=== PATIENT | male | born 1955 | race Caucasian/White ===

== ENCOUNTER 2017-11-05 09:06 | Emergency (ER) | payer OTHER ==
--- OUTSIDE RECORDS SUMMARY | 2017-11-05 09:09 | XMS REPORT | Clinical Summary ---
:1955 Author Organization [facility] Address [address] [place] [address] Phone Care Team Providers Name Role Phone Unavailable Primary Care Provider Unavailable Allergies No Known Allergies Current Medications Prescription Sig. Disp. Refills Start Date End Date Status carvedilol (COREG) Take 3.125 mg Active 3.125 MG tablet by mouth 2 (two) times daily with breakfast and dinner. furosemide (LASIX) 20 Take 20 mg by Active MG tablet mouth daily. spironolactone Take 25 mg by Active (ALDACTONE) 25 MG mouth daily. tablet pyridoxine, vitamin Take 50 mg by Active B6, (B-6) 50 MG mouth daily. tablet thiamine (VITAMIN Take 1 tablet 30 tablet 0 01/22/2017 Active B-1) 50 MG tablet (50 mg total) 8 by mouth daily. folic acid (FOLVITE) Take 1 tablet 30 tablet 0 01/22/2017 Active 1 MG tablet (1 mg total) 8 by mouth daily. amLODIPine (NORVASC) Take 10 mg by Active 10 MG tablet mouth daily. levETIRAcetam Take 750 mg by Active (KEPPRA) 750 MG mouth 2 (two) tablet times daily. traMADol (ULTRAM) 50 Take 50 mg by Active mg tablet mouth every 6 (six) hours as needed for Pain. lactulose (CHRONULAC) Take 30 mLs 1000 mL 0 08/29/2017 Active 20 gram/30 mL (20 g total) solution by mouth 2 (two) times daily. rifAXIMin 550 mg Tab Take 1 tablet 60 tablet 0 08/29/2017 Active (550 mg total) by mouth 2 (two) times daily. pantoprazole Take 1 tablet 30 tablet 2 08/29/2017 Active (PROTONIX) 40 MG (40 mg total) tablet by mouth daily. amLODIPine (NORVASC) Take 1 tablet 30 tablet 11 05/23/2016 10 MG tablet (10 mg total) 7 by mouth daily. folic acid (FOLVITE) Take 1 tablet 30 tablet 11 05/23/2016 1 MG tablet (1 mg total) 7 by mouth daily. levETIRAcetam Take 1 tablet 60 tablet 11 05/23/2016 (KEPPRA) 750 MG (750 mg total) 7 tablet by mouth 2 (two) times daily. metoprolol Take 1 tablet 60 tablet 11 05/23/2016 Discontinued (LOPRESSOR) 25 MG (25 mg total) 7 tablet by mouth 2 (two) times daily. chlordiazePOXIDE Take 10 mg by Discontinued (LIBRIUM) 10 MG mouth 3 7 capsule (three) times daily. omeprazole (PRILOSEC) Take 20 mg by Discontinued 20 MG capsule mouth daily. 8 traMADol (ULTRAM) 50 Take 1 tablet 30 tablet 0 01/22/2017 mg tablet (50 mg total) 7 by mouth every 6 (six) hours as needed for up to 10 days. Max Daily Amount: 200 mg rifAXIMin 550 mg Tab Take 1 tablet 60 tablet 0 01/22/2017 (550 mg total) 7 by mouth 2 (two) times daily for 30 days. pantoprazole Take 1 tablet 60 tablet 0 01/22/2017 (PROTONIX) 40 MG (40 mg total) 7 tablet by mouth 2 (two) times daily for 30 days. lactulose (CHRONULAC) Take 30 mLs 600 mL 0 01/22/2017 20 gram/30 mL (20 g total) 7 solution by mouth 2 (two) times daily for 10 days. lactulose (CHRONULAC) Take 30 mLs 1000 mL 0 08/29/2017 Discontinued 20 gram/30 mL (20 g total) 8 solution by mouth 2 (two) times daily. rifAXIMin 550 mg Tab Take 1 tablet 60 tablet 0 08/29/2017 Discontinued (550 mg total) 8 by mouth 2 (two) times daily. pantoprazole Take 1 tablet 30 tablet 2 08/29/2017 Discontinued (PROTONIX) 40 MG (40 mg total) 8 tablet by mouth daily. lactulose (CHRONULAC) Take 30 mLs 1000 mL 0 08/29/2017 Discontinued 20 gram/30 mL (20 g total) 8 solution by mouth 2 (two) times daily. rifAXIMin 550 mg Tab Take 1 tablet 60 tablet 0 08/29/2017 Discontinued (550 mg total) 8 by mouth 2 (two) times daily. pantoprazole Take 1 tablet 30 tablet 2 08/29/2017 Discontinued (PROTONIX) 40 MG (40 mg total) 8 tablet by mouth daily. Active Problems Problem Noted Date GI bleed 08/27/2017 Acute blood loss anemia 01/19/2017 Somnolence 01/19/2017 Encephalopathy acute 01/18/2017 UGIB (upper gastrointestinal bleed) 01/17/2017 Alcohol abuse 01/17/2017 Epilepsy (HCC) 01/17/2017 H/O: CVA (cerebrovascular accident) 01/17/2017 Encounters Date Type Specialty Care Team Description 08/29/2017 Anesthesia Event Gastroenterology Lillian Cannon CRNA 08/29/2017 Procedure Pass Gastroenterology 08/29/2017 Surgery Gastroenterology Chilango Whitman, UPPER ENDOSCOPY Kati Charlton MD 08/27/2017 Anesthesia Event Gastroenterology Samir Canas MD 08/27/2017 Procedure Pass Gastroenterology 08/26/2017 [facility], Encephalopathy acute - Encounter Christopher (Primary Dx);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, Juan Babb MD intractable, with status epilepticus (HCC);UGIB (upper gastrointestinal bleed);Gastrointestin al hemorrhage with hematemesis;H/O: CVA (cerebrovascular accident);Acute blood loss anemia 01/19/2017 Anesthesia Event Gastroenterology Shannon Corea MD 01/19/2017 Procedure Pass Gastroenterology 01/19/2017 Surgery Gastroenterology Casimiro Jaffe UPPER ENDOSCOPY MD Vj 01/18/2017 Anesthesia Event Gastroenterology Kendall Bonilla CRNA 01/18/2017 Procedure Pass Gastroenterology 01/17/2017 [facility] Internal Andrews Patten UGIB (upper - Encounter Medicine MD Ainsley gastrointestinal 01/23/2017 Maggie Wolff MD bleed);Alcohol Jerry Des abuse;Encephalopathy MD Wade acute;Partial Erica Joe idiopathic epilepsy MD David with seizures of localized onset, not intractable, with status epilepticus (HCC);H/O: CVA (cerebrovascular accident);Acute blood loss anemia;Somnolence 01/17/2017 Orders Only General Internal Medicine after 11/04/2016 Social History Tobacco Use Types Packs/Day Years Used Date Never Smoker Alcohol Use Drinks/Week oz/Week Comments Yes Unable to assess Sex Assigned at Date Recorded Not on file Last Filed Vital Signs Vital Sign Reading Time Taken Blood Pressure 100/63 08/30/2017 2:41 PM [employer] Pulse 72 08/30/2017 2:41 PM [employer] Temperature 36.7 C (98 F) 08/30/2017 2:41 PM [employer] Respiratory Rate 17 08/30/2017 2:41 PM [employer] Oxygen Saturation 99% 08/30/2017 2:41 PM [employer] Inhaled Oxygen Concentration - - Weight 53.7 kg (118 lb 4.8 oz) 08/26/2017 3:41 AM [employer] Height 167.6 cm (5' 6") 01/20/2017 7:00 AM CDT Body Mass Index 19.09 08/26/2017 3:41 AM [employer] Plan of Treatment Not on file Procedures Procedure Name Priority Date/Time Associated Diagnosis Comments UPPER ENDOSCOPY 08/29/2017 2:00 PM [employer] GI BLEED Special Needs EGD WITH ANES UPPER ENDOSCOPY 01/19/2017 8:32 AM CDT Upper G I Bleeding Case Notes Manager Immunology case at bedside ICU with anesthesia Special Needs Possible banding after 11/04/2016 Results EKG-SCANNED (09/02/2017 10:00 AM)RHYTHM STRIP - SCAN (09/02/2017 10:00 AM)Only the most recent of3 resultswithin the time period is included.REPORT OF PROCEDURE - ENDOSCOPY URL (08/29/2017 3:02 PM)Only the most recent of2 resultswithin the time period is included.Tissue Exam (08/29/2017 2:38 PM) Component Value Ref Range Case Report Surgical Pathology Report Case: [id number] Authorizing Provider:Kati Rodriguez Collected: 08/29/2017 1438 MD Zoltan Ordering Location: [address] Received: 09/01/2017 0738 Service Pathologist: John Cochran MD Specimens: A) - Gastric, RANDOM GASTRIC BX B) - Esophagus, BX ESOPHAGITIS DIAGNOSIS A. STOMACH, RANDOM BIOPSIES: - ANTRAL MUCOSA WITH REACTIVE GASTROPATHY AND MILD CHRONIC INACTIVE GASTRITIS - OXYNTIC MUCOSA WITH NO SIGNIFICANT DIAGNOSTIC ABNORMALITY - NEGATIVE FOR HELICOBACTER PYLORI ORGANISMS BY WARTHIN STARRY STAIN - NEGATIVE FOR INTESTINAL METAPLASIA, DYSPLASIA, MALIGNANCY B. ESOPHAGUS, BIOPSY: - CARDIO-OXYNTIC MUCOSA WITH CHRONIC INACTIVE GASTRITIS - NO SQUAMOUS MUCOSA IDENTIFIED - NEGATIVE FOR HELICOBACTER PYLORI ORGANISMS BY H&E EXAMINATION - NEGATIVE FOR INTESTINAL METAPLASIA, DYSPLASIA, MALIGNANCY Signing Pathologist Direct Phone Line: [phone] CPT Code(s) 10626W3 07015 CLINICAL HISTORY A. Random gastric biopsy; B. Esophagus biopsy SPECIMEN SOURCE The specimen is received in two containers of formalin both labeled with the patient's name and medical record number. Part A labeled 'random gastric biopsy" consists of two round fragments of humphries tissue measuring 0.1 and 0.2 cm, submitted A1. Part B labeled "esophagus biopsy" consists of three fragments of humphries tissue, ranging from less than 0.1 to 0.1 cm, submitted B1. CG/pl INTRAOPERATIVE CONSULTATION GI bleed. Esophagitis. MICROSCOPIC DESCRIPTION Performed. Specimen Performing Laboratory Tissue - Gastric; Tissue - Esophagus [address] [address] POC-Glucose meter (08/29/2017 2:37 PM) Component Value Ref Range POC-Glucose Meter 95Comment: TESTED AT [address] 70 - 110 mg/dL [address] Specimen Performing Laboratory Blood [address] [address] CBC with platelet count + automated diff (08/29/2017 5:29 AM)Only the most recent of5 resultswithin the time period is included. Component Value Ref Range WBC 5.5 3.5 - 10.5 K/L RBC 3.03 (L) 4.63 - 6.08 M/L Hemoglobin 8.6 (L) 13.7 - 17.5 GM/DL Hematocrit 26.0 (L) 40.1 - 51.0 % MCV 85.8 79.0 - 92.2 fL MCH 28.4 25.7 - 32.2 pg MCHC 33.1 32.3 - 36.5 GM/DL RDW 15.9 (H) 11.6 - 14.4 % Platelets 205 150 - 450 K/CU MM MPV 11.0 9.4 - 12.4 fL nRBC 0 0 - 0 /100 WBC % Neutros 79 % % Lymphs 13 % % Monos 6 % % Eos 2 % % Baso 0 % # Neutros 4.36 1.78 - 5.38 K/L # Lymphs 0.73 (L) 1.32 - 3.57 K/L # Monos 0.32 0.30 - 0.82 K/L # Eos 0.09 0.04 - 0.54 K/L # Baso 0.01 0.01 - 0.08 K/L Immature Granulocytes-Relative 0 0 - 1 % Specimen Performing Laboratory Blood - Arm, [address] [address] CBC with platelet count + automated diff (08/29/2017 5:29 AM)Only the most recent of5 resultswithin the time period is included. Specimen Performing Laboratory Blood Narrative The following orders were created for panel order CBC with platelet count + automated diff. Procedure Abnormality Status --------- ------ CBC with platelet count ...[[id number]]AbnormalFinal result Please view results for these tests on the individual orders. Hemoglobin and hematocrit (08/28/2017 11:33 AM)Only the most recent of9 resultswithin the time period is included. Component Value Ref Range Hemoglobin 9.3 (L) 13.7 - 17.5 GM/DL Hematocrit 27.9 (L) 40.1 - 51.0 % Specimen Performing Laboratory Blood - Arm, [address] [address] Urinalysis w/ Microscopic (08/27/2017 8:30 AM)Only the most recent of2 resultswithin the time period is included. Component Value Ref Range Color, UA Yellow Clarity, UA Clear Specific [place], UA 1.012 1.001 - 1.035 pH, UA 6.0 5.0 - 8.0 Protein, UA Negative Negative Glucose, UA Negative Negative Ketones, UA Negative Negative Bilirubin, UA Negative Negative Blood, UA Negative Negative Nitrite, UA Negative Negative Leukocytes, UA Negative Negative Urobilinogen, UA 0.2 0.2 - 1.0 mg/dL RBC, UA <1 /HPF WBC, UA <1 /HPF Squam Epithel, UA <1 /HPF Specimen Source Urine, Voided Specimen Performing Laboratory Urine - Urine, Voided [address] [address] Prothrombin time/INR (08/27/2017 4:27 AM)Only the most recent of4 resultswithin the time period is included. Component Value Ref Range Protime 15.4 (H) 11.7 - 14.7 seconds INR 1.2 <=5.9 Specimen Performing Laboratory Blood - Arm, [address] [address] Narrative RECOMMENDED COUMADIN/WARFARIN INR THERAPY RANGES STANDARD DOSE: 2.0 - 3.0 Includes: PROPHYLAXIS for venous thrombosis, systemic embolization; TREATMENT for venous thrombosis and/or pulmonary embolus. HIGH RISK: Target INR is 2.5-3.5 for patients with mechanical heart valves. Basic Metabolic Panel (08/27/2017 4:27 AM)Only the most recent of5 resultswithin the time period is included. Component Value Ref Range Sodium 135 (L) 136 - 145 meq/L Potassium 3.6 3.5 - 5.1 meq/L Chloride 106 98 - 107 meq/L CO2 22 22 - 29 meq/L BUN 19 7 - 21 mg/dL Creatinine 0.89 0.57 - 1.25 mg/dL Glucose 84 70 - 105 mg/dL Calcium 8.9 8.4 - 10.2 mg/dL EGFR 86Comment: ESTIMATED GFR IS NOT ACCURATE mL/min/1.73 sq m CREATININE CLEARANCE IN PREDICTING GLOMERULAR FILTRATION RATE. ESTIMATED GFR IS NOT APPLICABLE FOR DIALYSIS PATIENTS. Specimen Performing Laboratory Blood - Arm, [address] [address] Lactic acid, venous, whole blood (08/26/2017 5:37 AM)Only the most recent of2 resultswithin the time period is included. Component Value Ref Range Lactate, Venous 0.9Comment: Specimen slightly hemolyzed 0.5 - 2.2 mmol/L Specimen Performing Laboratory Blood - Arm, [address] [address] Narrative Effective 11/22/2015: Units/Reference Range Change New: 0.5-2.2 mmol/LPrevious: 5-20 mg/dL Ammonia (08/26/2017 5:37 AM)Only the most recent of2 resultswithin the time period is included. Component Value Ref Range Ammonia 82 (H)Comment: Specimen slightly hemolyzed 18 - 72 mol/L Specimen Performing Laboratory Blood - Arm, [address] [address] Hepatic function panel (08/26/2017 5:37 AM)Only the most recent of4 resultswithin the time period is included. Component Value Ref Range Protein, Total 6.7Comment: Specimen slightly hemolyzed 6.0 - 8.3 gm/dL Albumin 3.3 (L)Comment: Specimen slightly hemolyzed 3.5 - 5.0 g/dL Total Bilirubin 0.4Comment: Specimen slightly hemolyzed 0.2 - 1.2 mg/dL Bilirubin, Direct 0.2Comment: Specimen slightly hemolyzed 0.1 - 0.5 mg/dL Alkaline Phosphatase 50 40 - 150 U/L AST 25Comment: Specimen slightly hemolyzed 5 - 34 U/L ALT 19Comment: Specimen slightly hemolyzed 6 - 55 U/L Specimen Performing Laboratory Blood - Arm, [address] [address] EEG AWAKE AND DROWSY (01/20/2017 9:24 AM) Specimen Performing Laboratory GE RIS Narrative DATE OF TEST: 01-20-2017 DATE OF REPORT: 01-20-2017 ICD-10: R56.9 CPT Code: 59545 HISTORY: Patient w/ history of HTN, Hep C cirrhosis, alcoholism, CVA with residual left sided weakness who presented with AMS and unresponsive to sternal rub. CT Head showed enlargement of ventricles MEDICATIONS: Rocephin, Folvite, Chronulac, Keppra, Protonix, Rifaximin, Thiamine, Tramadol TECHNICAL SUMMARY: This is a digital video EEG recorded with 32 input channels reviewed with bipolar and referential montages using the modified [employer] system nomenclature. DESCRIPTION OF RECORD: During the maximally alert state, no definite posterior dominant rhythm was seen, although 7-8 Hz activity was seen in the left posterior head region which did not react to eye opening and closure. More anteriorly, low voltage frontocentral beta predominated. There was an excessive amount of admixed theta over the left hemisphere with superimposed faster frequencies. Focal 1-2 Hz delta slowing was seen over the right hemisphere with a relative decrease in the amount of faster frequencies seen. Frequent sharp waves were seen over the right parieto-occipital region, with an initial negativity at O2 with quick propagation to P4/P8. These were commonly seen in semiperiodic 1-2 Hz runs lasting up to 6 seconds without evolution. Drowsiness was characterized by alpha attenuation, increased frontocentral theta and decreased eye blinks but no stage 2 sleep structures were seen. HV: Hyperventilation was not performed. PHOTIC STIMULATION: Flash stimulation was performed from 1-33 Hz. Photic driving was not seen and no photoparoxysmal response was seen. IMPRESSION: Abnormal Awake and Drowsy EEG Sharp waves, regional right parieto-occipital Continuous slow, lateralized right hemisphere Continuous slow, generalized CLINICAL CORRELATION: This is an abnormal EEG suggestive of a mild encephalopathy with superimposed focal dysfunction over the right hemisphere. There is also evidence of right parieto-occipital epileptogenic potential. No electrographic seizures were seen. Yefri Carrillo MD, MS Neurophysiology/Epilepsy Attending Procedure Note Interface, External Ris In - 01/20/2017 10:31 AM CDT DATE OF TEST: 01-20-2017 DATE OF REPORT: 01-20-2017 ICD-10: R56.9 CPT Code: 19945 HISTORY: Patient w/ history of HTN, Hep C cirrhosis, alcoholism, CVA with residual left sided weakness who presented with AMS and unresponsive to sternal rub. CT Head showed enlargement of ventricles MEDICATIONS: Rocephin, Folvite, Chronulac, Keppra, Protonix, Rifaximin, Thiamine, Tramadol TECHNICAL SUMMARY: This is a digital video EEG recorded with 32 input channels reviewed with bipolar and referential montages using the modified [employer] system nomenclature. DESCRIPTION OF RECORD: During the maximally alert state, no definite posterior dominant rhythm was seen, although 7-8 Hz activity was seen in the left posterior head region which did not react to eye opening and closure. More anteriorly, low voltage frontocentral beta predominated. There was an excessive amount of admixed theta over the left hemisphere with superimposed faster frequencies. Focal 1-2 Hz delta slowing was seen over the right hemisphere with a relative decrease in the amount of faster frequencies seen. Frequent sharp waves were seen over the right parieto-occipital region, with an initial negativity at O2 with quick propagation to P4/P8. These were commonly seen in semiperiodic 1-2 Hz runs lasting up to 6 seconds without evolution. Drowsiness was characterized by alpha attenuation, increased frontocentral theta and decreased eye blinks but no stage 2 sleep structures were seen. HV: Hyperventilation was not performed. PHOTIC STIMULATION: Flash stimulation was performed from 1-33 Hz. Photic driving was not seen and no photoparoxysmal response was seen. IMPRESSION: Abnormal Awake and Drowsy EEG Sharp waves, regional right parieto-occipital Continuous slow, lateralized right hemisphere Continuous slow, generalized CLINICAL CORRELATION: This is an abnormal EEG suggestive of a mild encephalopathy with superimposed focal dysfunction over the right hemisphere. There is also evidence of right parieto-occipital epileptogenic potential. No electrographic seizures were seen. Yefri Carrillo MD, MS Neurophysiology/Epilepsy Attending Magnesium (01/20/2017 4:24 AM)Only the most recent of4 resultswithin the time period is included. Component Value Ref Range Magnesium 1.8Comment: Specimen slightly hemolyzed 1.6 - 2.6 mg/dL Specimen Performing Laboratory Blood - Arm, [place] [address] US abdomen complete (01/19/2017 12:50 AM) Specimen Performing Laboratory GE RIS Narrative FINAL REPORT INDICATION: history of cirrohsis COMPARISON: None. TECHNIQUE:Real-time transabdominal jeter scale and color Doppler ultrasound of the abdomen. FINDINGS: Liver: Size: 16.0cm. Echogenicity: Normal. Masses/lesions: None. Surface Nodularity: None. Intrahepatic bile ducts: Normal. Common bile duct: 0.7 cm. MPV: 1.3cm. Gallbladder: Stones: None. Sludge: None. Wall thickness: 0.3 cm. The gallbladder lumen is nondistended. Pericholecystic fluid: None. Sonographic Gomez's sign: No sonographic Gomez's sign. Pancreas: Head and uncinate process: Not well-seen. Body and tail: Not well-seen. Spleen: Size: 9.3cm. Echogenicity: Unremarkable. Right kidney: Absent. Left kidney: Size: 10.3 x 6.7 x 5.7 cm. Parenchyma: Normal echogenicity. No cysts. No stones. Hydronephrosis: None. Ascites: None. Regional Vasculature: The visible abdominal aorta, IVC and hepatic veins are patent. Additional findings: None. IMPRESSION: Mild hepatomegaly. No focal lesions. No distinct surface nodularity. Signed: JR Jc Robert MD Report Verified Date/Time:01/19/2017 02:43:10 Reading Location: [address] Transitional Reading Room Procedure Note Interface, External Ris In - 01/19/2017 2:45 AM CDT FINAL REPORT INDICATION: history of cirrohsis COMPARISON: None. TECHNIQUE: Real-time transabdominal jeter scale and color Doppler ultrasound of the abdomen. FINDINGS: Liver: Size: 16.0cm. Echogenicity: Normal. Masses/lesions: None. Surface Nodularity: None. Intrahepatic bile ducts: Normal. Common bile duct: 0.7 cm. MPV: 1.3cm. Gallbladder: Stones: None. Sludge: None. Wall thickness: 0.3 cm. The gallbladder lumen is nondistended. Pericholecystic fluid: None. Sonographic Gomez's sign: No sonographic Gomez's sign. Pancreas: Head and uncinate process: Not well-seen. Body and tail: Not well-seen. Spleen: Size: 9.3cm. Echogenicity: Unremarkable. Right kidney: Absent. Left kidney: Size: 10.3 x 6.7 x 5.7 cm. Parenchyma: Normal echogenicity. No cysts. No stones. Hydronephrosis: None. Ascites: None. Regional Vasculature: The visible abdominal aorta, IVC and hepatic veins are patent. Additional findings: None. IMPRESSION: Mild hepatomegaly. No focal lesions. No distinct surface nodularity. Signed: JR Jc Robert MD Report Verified Date/Time: 01/19/2017 02:43:10 Reading Location: [facility] C013T Transitional Reading Room Rapid drug screen, urine (01/18/2017 4:18 PM) Component Value Ref Range Barbiturate Screen Negative Negative Benzodiazepine Screen Positive (A) Negative Cocaine (Metab.) Screen Negative Negative Methadone Screen Negative Negative Opiate Screen Negative Negative Cannabinoid Screen Negative Negative Amph/Methamph Screen Negative Negative Phencyclidine Screen Negative Negative Oxycodone Screen Negative Negative Specimen Performing Laboratory Urine - Urine, Voided [address] [address] Narrative DRUGCUTOFF CONC. Cocaine 300 ng/mL [id number] ng/mL [id number] ng/mL Barbiturate 200 ng/mL Klhspeysaqyhe01 ng/mL Zuchyd119 ng/mL Methadone 300 ng/mL Amphetamine/ 1000 ng/mL Methamphetamine Oxycodone 300 ng/mL This assay provides an unconfirmed qualitative test result for the clinical management of patients in emergency situations. Chain of custody not maintained. Some [id number] medications, as well as adulterants, may cause inaccurate results. Clinical correlation should be applied. A more comprehensive drug screen or confirmation of a detected drug may be performed upon request. Urine culture (01/18/2017 4:17 PM) Component Value Ref Range Result No growth Specimen Performing Laboratory Urine - Urine, Voided [address] [address] [address] brain without IV contrast (01/18/2017 11:26 AM) Specimen Performing Laboratory [employer] Narrative FINAL REPORT CT head without contrast. Reason for exam: acute encephalopathy Comparisons: MRI dated October 18, 2009 Discussion: Multiple axial CT images of the head are provided without contrast evaluated in brain and bone windows. This exam was performed according to our departmental dose optimization program which includes automated exposure control, adjustment of the mA and/or kV according to patient's size and/or use of iterative reconstructive technique. There is age related generalized brain volume loss. Nonspecific confluent supratentorial white matter hypodensity most likely reflects chronic small vessel ischemic disease. No evidence of acute territorial infarct. Intracranial vascular calcifications are present. Moderate ventriculomegaly appears slightly progressed from the previous study. There is no CT evidence of intracranial hemorrhage, mass-effect, shift, or extra-axial collections. The visualized orbital contents, bones and surrounding soft tissues are unremarkable. The visualized paranasal sinuses and mastoid air cells are unremarkable. Impressions: No CT evidence of large vascular territory infarct, intracranial hemorrhage, or mass effect. There is moderate ventriculomegaly which appears slightly out of proportion to the appearance of the cerebral sulci. While this may reflect cerebral volume loss, a communicating hydrocephalus, perhaps normal pressure hydrocephalus, cannot be excluded. Involutional, and chronic microvascular ischemic changes. If there is persistent clinical concern, MRI may provide further evaluation. Signed: David Phillips MD Report Verified Date/Time:01/18/2017 11:56:06 Reading Location: [address] Neuro Reading Room Procedure Note Interface, External Ris In - 01/18/2017 11:58 AM CDT FINAL REPORT CT head without contrast. Reason for exam: acute encephalopathy Comparisons: MRI dated October 18, 2009 Discussion: Multiple axial CT images of the head are provided without contrast evaluated in brain and bone windows. This exam was performed according to our departmental dose optimization program which includes automated exposure control, adjustment of the mA and/or kV according to patient's size and/or use of iterative reconstructive technique. There is age related generalized brain volume loss. Nonspecific confluent supratentorial white matter hypodensity most likely reflects chronic small vessel ischemic disease. No evidence of acute territorial infarct. Intracranial vascular calcifications are present. Moderate ventriculomegaly appears slightly progressed from the previous study. There is no CT evidence of intracranial hemorrhage, mass-effect, shift, or extra-axial collections. The visualized orbital contents, bones and surrounding soft tissues are unremarkable. The visualized paranasal sinuses and mastoid air cells are unremarkable. Impressions: No CT evidence of large vascular territory infarct, intracranial hemorrhage, or mass effect. There is moderate ventriculomegaly which appears slightly out of proportion to the appearance of the cerebral sulci. While this may reflect cerebral volume loss, a communicating hydrocephalus, perhaps normal pressure hydrocephalus, cannot be excluded. Involutional, and chronic microvascular ischemic changes. If there is persistent clinical concern, MRI may provide further evaluation. Signed: David Phillips MD Report Verified Date/Time: 01/18/2017 11:56:06 Reading Location: [facility] C013V Neuro Reading Room chest 1 view portable / bedside (01/18/2017 11:00 AM) Specimen Performing Laboratory GE RIS Narrative FINAL REPORT AP chest HISTORY: Respiratory distress COMPARISON: None IMPRESSION: Cervical spine fixation hardware present. Remote rib fractures are seen. 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 Heart size upper limits of normal. Right lung clear. Opacity at the left lung base may reflect atelectasis or pneumonia. No significant effusion. No pneumothorax. Signed: Eddie Vasquez MD Report Verified Date/Time:01/18/2017 11:28:30 Reading Location: [facility] C013X Ortho Consult Reading Room Procedure Note Interface, External Ris In - 01/18/2017 11:30 AM CDT FINAL REPORT AP chest HISTORY: Respiratory distress COMPARISON: None IMPRESSION: Cervical spine fixation hardware present. Remote rib fractures are seen. 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 Heart size upper limits of normal. Right lung clear. Opacity at the left lung base may reflect atelectasis or pneumonia. No significant effusion. No pneumothorax. Signed: Eddie Vasquez MD Report Verified Date/Time: 01/18/2017 11:28:30 Reading Location: [facility] C013X Ortho Consult Reading Room -Lactic Acid, Arterial (01/18/2017 10:38 AM) Component Value Ref Range POC-Lactic Acid, Arterial 0.5Comment: TESTED AT [address] 0.4 - 1.3 mmol/L [facility] [address] Specimen Performing Laboratory Blood [facility] [address] [address] POCT-HEMATOCRIT (01/18/2017 10:25 AM) Component Value Ref Range POC-Hematocrit 27 (L)Comment: TESTED AT [address] [address] 40 - 50 % Specimen Performing Laboratory Blood [address] [address] POCT-HEMOGLOBIN (01/18/2017 10:25 AM) Component Value Ref Range POC-Hemoglobin 9.2 (L)Comment: TESTED AT [address] 13.0 - 16.8 g/[place] [address] Specimen Performing Laboratory Blood [address] [address] POCT-GLUCOSE (01/18/2017 10:25 AM) Component Value Ref Range POC-Glucose 140 (H)Comment: TESTED AT [address] 70 - 110 mg/dL [address] Specimen Performing Laboratory Blood [address] [address] POC-Sodium (01/18/2017 10:25 AM) Component Value Ref Range POC-Sodium 136Comment: TESTED AT [address] [address] 135 - 148 meq/L Specimen Performing Laboratory Blood [address] [address] POC-Potassium (01/18/2017 10:25 AM) Component Value Ref Range POC-Potassium 3.9Comment: TESTED AT [address] 3.6 - 5.5 meq/L [address] Specimen Performing Laboratory Blood [address] [address] POC-Calcium ionized (01/18/2017 10:25 AM) Component Value Ref Range POC-Calcium Ionized 1.34 (H)Comment: TESTED AT [address] 1.12 - 1.27 mmol/L [facility] [address] Specimen Performing Laboratory Blood [address] [address] POC-Blood gases, arterial (01/18/2017 10:25 AM) Component Value Ref Range Temp. Celsius-POC 37.0 FIO2-POC Comment: TESTED AT [address] [address] pH, Arterial-POC 7.387 7.350 - 7.450 PCO2, Arterial-POC 41.4 35.0 - 45.0 mm Hg PO2, Arterial-POC 74.0 (L) 80.0 - 90.0 mm Hg SO2, Arterial-POC 94.0 (L) 96.0 - 97.0 % HCO3, Arterilal-POC 24.9 21.0 - 29.0 meq/L BE, Arterial-POC 0.0 -2.0 - 3.0 meq/L Specimen Performing Laboratory Blood [address] [address] ECG 12 lead (01/18/2017 10:13 AM)Only the most recent of2 resultswithin the time period is included. Specimen Performing Laboratory GE MUSE Narrative Ventricular Rate 52 BPM Atrial Rate 52 BPM P-R Interval 160 ms QRS Duration 94 ms Q-T Interval 454 ms QTC Calculation(Bazett) 422 ms P [place] 92 degrees R [place] -15 degrees T [place] 27 degrees Sinus bradycardia Minimal voltage criteria for LVH, may be normal variant Borderline ECG When compared with ECG of 17-JAN-2017 17:36, No significant change was found Confirmed by MD SPARROW YOCHAI ([id number]) on 01/20/2017 6:14:38 AM Procedure Note Interface, External Ris In - 01/20/2017 6:14 AM CDT Ventricular Rate 52 BPM Atrial Rate 52 BPM P-R Interval 160 ms QRS Duration 94 ms Q-T Interval 454 ms QTC Calculation(Bazett) 422 ms P [place] 92 degrees R [place] -15 degrees T [place] 27 degrees Sinus bradycardia Minimal voltage criteria for LVH, may be normal variant Borderline ECG When compared with ECG of 17-JAN-2017 17:36, No significant change was found Confirmed by MD SPARROW YOCHAI ([id number]) on 01/20/2017 6:14:38 AM Blood culture #2 (01/18/2017 6:30 AM)Only the most recent of2 resultswithin the time period is included. Component Value Ref Range Result No growth in 5 days Specimen Performing Laboratory Blood - Arm, Right [address] [address] Type and screen, automated (01/18/2017 6:29 AM) Component Value Ref Range ABO/RH AUTOMATED (BEAKER) O NEGATIVE Ab Scrn NEGATIVE Specimen Performing Laboratory Blood [address] [address] PT/aPTT (01/18/2017 6:29 AM) Component Value Ref Range Protime 14.5 11.7 - 14.7 seconds INR 1.1 <=5.9 PTT 26.9 22.5 - 36.0 seconds Specimen Performing Laboratory Blood [address] [address] Narrative RECOMMENDED COUMADIN/WARFARIN INR THERAPY RANGES STANDARD DOSE: 2.0 - 3.0 Includes: PROPHYLAXIS for venous thrombosis, systemic embolization; TREATMENT for venous thrombosis and/or pulmonary embolus. HIGH RISK: Target INR is 2.5-3.5 for patients with mechanical heart valves. CBC (Hemogram only) (01/18/2017 6:29 AM) Component Value Ref Range WBC 10.6 (H) 4.0 - 10.0 K/L RBC 2.99 (L) 4.20 - 5.80 M/L Hemoglobin 9.9 (L) 13.0 - 16.8 GM/DL Hematocrit 29.1 (L) 40.0 - 50.0 % MCV 97.5 82.0 - 98.0 fL MCH 33.2 (H) 27.0 - 33.0 pg MCHC 34.1 32.0 - 36.0 GM/DL RDW 13.8 10.3 - 14.2 % Platelets 282 150 - 430 K/CU MM MPV 8.0 6.5 - 10.5 fL nRBC 0 0 - 0 /100 WBC Specimen Performing Laboratory Blood [address] [address] Narrative 0.00 Comprehensive metabolic panel (01/17/2017 6:58 PM) Component Value Ref Range Protein, Total 6.8Comment: Specimen slightly hemolyzed 6.0 - 8.3 gm/dL Albumin 3.4 (L)Comment: Specimen slightly hemolyzed 3.5 - 5.0 g/dL Alkaline Phosphatase 59 40 - 150 U/L Total Bilirubin 0.3Comment: Specimen slightly hemolyzed 0.2 - 1.2 mg/dL Sodium 134 (L) 136 - 145 meq/L Potassium 4.5Comment: Specimen slightly hemolyzed 3.5 - 5.1 meq/L Chloride 106 98 - 107 meq/L CO2 20 (L) 22 - 29 meq/L BUN 19 7 - 21 mg/dL Creatinine 0.93Comment: Specimen slightly hemolyzed 0.57 - 1.25 mg/dL Glucose 125 (H) 70 - 105 mg/dL Calcium 9.1 8.4 - 10.2 mg/dL AST 22Comment: Specimen slightly hemolyzed 5 - 34 U/L ALT 17Comment: Specimen slightly hemolyzed 6 - 55 U/L EGFR 82Comment: ESTIMATED GFR IS NOT ACCURATE mL/min/1.73 sq m CREATININE CLEARANCE IN PREDICTING GLOMERULAR FILTRATION RATE. ESTIMATED GFR IS NOT APPLICABLE FOR DIALYSIS PATIENTS. Specimen Performing Laboratory Blood - Arm, [address] [place] [address] after 11/04/2016
--- OUTSIDE RECORDS SUMMARY | 2017-11-05 09:10 | XMS REPORT ---
:1955 [facility] [address] [place] [address] Care Team Providers Name Role Phone YANIV ILSA AVILA Unavailable Unavailable Ainsley ROA Unavailable Unavailable Problems This patient has no known problems. Allergies, Adverse Reactions, Alerts This patient has no known allergies or adverse reactions. Medications This patient has no known medications. Results Test Description Test Time Test Comments Text Results Atomic Results Result Comments TISSUE EXAM 2017-09-02 10:29:00 Surgical Pathology Report Case: [id number] Authorizing Provider: Kati Rodriguez Collected: 08/29/2017 Tristin Charlton MD Ordering Location: [address] Received: 09/01/2017 0738 Service Pathologist: John Cochran MD Specimens: A) - Gastric, RANDOM GASTRIC BX B) - Esophagus, BX ESOPHAGITIS A. STOMACH, RANDOM BIOPSIES:- ANTRAL MUCOSA WITH REACTIVE GASTROPATHY AND MILD CHRONIC INACTIVE GASTRITIS- OXYNTIC MUCOSA WITH NO SIGNIFICANT DIAGNOSTIC ABNORMALITY- NEGATIVE FOR HELICOBACTER PYLORI ORGANISMS BY WARTHIN STARRY STAIN- NEGATIVE FOR INTESTINAL METAPLASIA, DYSPLASIA, MALIGNANCYB. ESOPHAGUS, BIOPSY:- CARDIO-OXYNTIC MUCOSA WITH CHRONIC INACTIVE GASTRITIS- NO SQUAMOUS MUCOSA IDENTIFIED- NEGATIVE FOR HELICOBACTER PYLORI ORGANISMS BY H&E EXAMINATION- NEGATIVE FOR INTESTINAL METAPLASIA, DYSPLASIA, MALIGNANCY Signing Pathologist Direct Phone Line: [phone] signed by John Cochran MD on 09/02/2017 at 10:29 [id number]. Random gastric biopsy; B. Esophagus biopsyThe specimen is received in two containers of formalin both labeled with the patient's name and medical record number.Part A labeled 'random gastric biopsy" consists of two round fragments of humphries tissue measuring 0.1 and 0.2 cm, submitted A1. Part B labeled "esophagus biopsy" consists of three fragments of humphries tissue, ranging from less than 0.1 to 0.1 cm, submitted B1. CG/pl GI bleed. Esophagitis. Performed. POCT-GLUCOSE METER 2017-08-29 14:47:00 Test Item Value Reference Range Comments POC-GLUCOSE METER (BEAKER) (test 95 mg/dL 70-110 [facility] AT [facility] [address] [facility] [address] CBC W/PLT COUNT & AUTO [id number] 06:06:00 Test Item Value Reference Range Comments WHITE BLOOD CELL COUNT (BEAKER) (test lypk=115) 5.5 K/ L 3.5-10.5 RED BLOOD CELL COUNT (BEAKER) (test vyde=905) 3.03 M/ L 4.63-6.08 HEMOGLOBIN (BEAKER) (test wlmb=706) 8.6 GM/DL 13.7-17.5 HEMATOCRIT (BEAKER) (test qiii=516) 26.0 % 40.1-51.0 MEAN CORPUSCULAR VOLUME (BEAKER) (test zwsl=706) 85.8 fL 79.0-92.2 MEAN CORPUSCULAR HEMOGLOBIN (BEAKER) (test 28.4 pg 25.7-32.2 xnty=598) MEAN CORPUSCULAR HEMOGLOBIN CONC (BEAKER) (test 33.1 GM/DL 32.3-36.5 vyoj=895) RED CELL DISTRIBUTION WIDTH (BEAKER) (test 15.9 % 11.6-14.4 wxyd=257) PLATELET COUNT (BEAKER) (test lrth=454) 205 K/CU MM 150-450 MEAN PLATELET VOLUME (BEAKER) (test eizz=267) 11.0 fL 9.4-12.4 NUCLEATED RED BLOOD CELLS (BEAKER) (test 0 /100 WBC 0-0 ihqn=647) NEUTROPHILS RELATIVE PERCENT (BEAKER) (test 79 % rqqj=174) LYMPHOCYTES RELATIVE PERCENT (BEAKER) (test 13 % avgz=631) MONOCYTES RELATIVE PERCENT (BEAKER) (test 6 % lolx=271) EOSINOPHILS RELATIVE PERCENT (BEAKER) (test 2 % bpxz=028) BASOPHILS RELATIVE PERCENT (BEAKER) (test 0 % ovar=802) NEUTROPHILS ABSOLUTE COUNT (BEAKER) (test 4.36 K/ L 1.78-5.38 djek=809) LYMPHOCYTES ABSOLUTE COUNT (BEAKER) (test 0.73 K/ L 1.32-3.57 zidk=216) MONOCYTES ABSOLUTE COUNT (BEAKER) (test 0.32 K/ L 0.30-0.82 mumr=571) EOSINOPHILS ABSOLUTE COUNT (BEAKER) (test 0.09 K/ L 0.04-0.54 cltc=395) BASOPHILS ABSOLUTE COUNT (BEAKER) (test 0.01 K/ L 0.01-0.08 vyfc=372) IMMATURE GRANULOCYTES-RELATIVE PERCENT (BEAKER) 0 % 0-1 (test icix=6069) HEMOGLOBIN AND [id number] 11:41:00 Test Item Value Reference Range Comments HEMOGLOBIN (BEAKER) (test zpmv=712) 9.3 GM/DL 13.7-17.5 HEMATOCRIT (BEAKER) (test kpvl=318) 27.9 % 40.1-51.0 HEMOGLOBIN AND [id number] 08:09:00 Test Item Value Reference Range Comments HEMOGLOBIN (BEAKER) (test kfwo=192) 8.7 GM/DL 13.7-17.5 HEMATOCRIT (BEAKER) (test hiso=979) 27.5 % 40.1-51.0 HEMOGLOBIN AND [id number] 21:51:00 Test Item Value Reference Range Comments HEMOGLOBIN (BEAKER) (test aztv=149) 9.3 GM/DL 13.7-17.5 HEMATOCRIT (BEAKER) (test ebfz=267) 28.6 % 40.1-51.0 HEMOGLOBIN AND [id number] 15:05:00 Test Item Value Reference Range Comments HEMOGLOBIN (BEAKER) (test lpyc=118) 9.2 GM/DL 13.7-17.5 HEMATOCRIT (BEAKER) (test gwes=713) 28.7 % 40.1-51.0 CBC W/PLT COUNT & AUTO [id number] 11:21:00 Test Item Value Reference Range Comments WHITE BLOOD CELL COUNT (BEAKER) (test ghmy=433) 8.3 K/ L 3.5-10.5 RED BLOOD CELL COUNT (BEAKER) (test inkx=919) 3.00 M/ L 4.63-6.08 HEMOGLOBIN (BEAKER) (test ghei=745) 8.5 GM/DL 13.7-17.5 HEMATOCRIT (BEAKER) (test wixj=885) 26.6 % 40.1-51.0 MEAN CORPUSCULAR VOLUME (BEAKER) (test lbxc=195) 88.7 fL 79.0-92.2 MEAN CORPUSCULAR HEMOGLOBIN (BEAKER) (test 28.3 pg 25.7-32.2 qjbr=175) MEAN CORPUSCULAR HEMOGLOBIN CONC (BEAKER) (test 32.0 GM/DL 32.3-36.5 mgun=575) RED CELL DISTRIBUTION WIDTH (BEAKER) (test 16.4 % 11.6-14.4 zgyd=402) PLATELET COUNT (BEAKER) (test dueu=255) 183 K/CU MM 150-450 MEAN PLATELET VOLUME (BEAKER) (test xoql=019) 11.5 fL 9.4-12.4 NUCLEATED RED BLOOD CELLS (BEAKER) (test 0 /100 WBC 0-0 lzwq=507) NEUTROPHILS RELATIVE PERCENT (BEAKER) (test 59 % prjd=453) LYMPHOCYTES RELATIVE PERCENT (BEAKER) (test 26 % fqyr=080) MONOCYTES RELATIVE PERCENT (BEAKER) (test 13 % avga=828) EOSINOPHILS RELATIVE PERCENT (BEAKER) (test 1 % lsfv=341) BASOPHILS RELATIVE PERCENT (BEAKER) (test 0 % wwrx=267) NEUTROPHILS ABSOLUTE COUNT (BEAKER) (test 4.89 K/ L 1.78-5.38 vaiy=227) LYMPHOCYTES ABSOLUTE COUNT (BEAKER) (test 2.19 K/ L 1.32-3.57 ulgu=008) MONOCYTES ABSOLUTE COUNT (BEAKER) (test 1.09 K/ L 0.30-0.82 vueu=129) EOSINOPHILS ABSOLUTE COUNT (BEAKER) (test 0.11 K/ L 0.04-0.54 gjuf=331) BASOPHILS ABSOLUTE COUNT (BEAKER) (test 0.02 K/ L 0.01-0.08 cwty=744) IMMATURE GRANULOCYTES-RELATIVE PERCENT (BEAKER) 0 % 0-1 (test jmav=7649) URINALYSIS W/ [id number] 09:16:00 Test Item Value Reference Range Comments COLOR (BEAKER) (test wkga=050) Yellow CLARITY (BEAKER) (test ifyx=333) Clear SPECIFIC GRAVITY UA (BEAKER) (test hooq=334) 1.012 1.001-1.035 PH UA (BEAKER) (test ggln=614) 6.0 5.0-8.0 PROTEIN UA (BEAKER) (test mqgx=974) Negative Negative GLUCOSE UA (BEAKER) (test xllm=545) Negative Negative KETONES UA (BEAKER) (test rekr=953) Negative Negative BILIRUBIN UA (BEAKER) (test ciqy=714) Negative Negative BLOOD UA (BEAKER) (test vqwr=039) Negative Negative NITRITE UA (BEAKER) (test mxys=967) Negative Negative LEUKOCYTE ESTERASE UA (BEAKER) (test segi=211) Negative Negative UROBILINOGEN UA (BEAKER) (test orxl=520) 0.2 mg/dL 0.2-1.0 RBC UA (BEAKER) (test ybpi=628) < /HPF WBC UA (BEAKER) (test dcio=702) < /HPF SQUAMOUS EPITHELIAL (BEAKER) (test uulc=964) < /HPF SOURCE(BEAKER) (test jrsd=7159) Urine, Voided PROTHROMBIN [id number] 05:46:00 Test Item Value Reference Range Comments PROTIME (BEAKER) (test ihgx=933) 15.4 seconds 11.7-14.7 INR (BEAKER) (test zzgf=654) 1.2 <=5.9 RECOMMENDED COUMADIN/WARFARIN INR THERAPY RANGESSTANDARD DOSE: 2.0 - 3.0 Includes: PROPHYLAXIS forvenous thrombosis, systemic embolization; TREATMENT for venous thrombosis and/or pulmonary embolus.HIGH RISK: Target INR is 2.5-3.5 for patients with mechanical heart valves.BASIC METABOLIC [id number] 05:42: 00 Test Item Value Reference Range Comments SODIUM (BEAKER) (test 135 meq/L 136-145 pdlh=562) POTASSIUM (BEAKER) (test 3.6 meq/L 3.5-5.1 xfgi=494) CHLORIDE (BEAKER) (test 106 meq/L 98-107 byft=046) CO2 (BEAKER) (test 22 meq/L 22-29 bwbs=985) BLOOD UREA NITROGEN 19 mg/dL 7-21 (BEAKER) (test emyo=067) CREATININE (BEAKER) (test 0.89 mg/dL 0.57-1.25 loxh=808) GLUCOSE RANDOM (BEAKER) 84 mg/dL 70-105 (test uksd=643) CALCIUM (BEAKER) (test 8.9 mg/dL 8.4-10.2 hwws=477) EGFR (BEAKER) (test 86 mL/min/1.73 sq m ESTIMATED GFR IS NOT xixv=2683) ACCURATE CREATININE CLEARANCE IN PREDICTING GLOMERULAR FILTRATION RATE. ESTIMATED GFR IS NOT APPLICABLE FOR DIALYSIS PATIENTS. HEMOGLOBIN AND [id number] 05:20:00 Test Item Value Reference Range Comments HEMOGLOBIN (BEAKER) (test zfdf=444) 8.4 GM/DL 13.7-17.5 HEMATOCRIT (BEAKER) (test otse=463) 25.9 % 40.1-51.0 HEMOGLOBIN AND [id number] 20:53:00 Test Item Value Reference Range Comments HEMOGLOBIN (BEAKER) (test elqd=666) 8.5 GM/DL 13.7-17.5 HEMATOCRIT (BEAKER) (test gjse=146) 26.5 % 40.1-51.0 BASIC METABOLIC [id number] 17:48:00 Test Item Value Reference Range Comments SODIUM (BEAKER) (test 129 meq/L 136-145 kcnm=698) POTASSIUM (BEAKER) (test 4.1 meq/L 3.5-5.1 Specimen slightly hstp=225) hemolyzed CHLORIDE (BEAKER) (test 102 meq/L 98-107 tvah=296) CO2 (BEAKER) (test 23 meq/L 22-29 zqrf=573) BLOOD UREA NITROGEN 21 mg/dL 7-21 (BEAKER) (test tgrl=559) CREATININE (BEAKER) (test 0.84 mg/dL 0.57-1.25 Specimen slightly rjhu=148) hemolyzed GLUCOSE RANDOM (BEAKER) 99 mg/dL 70-105 (test rqpc=808) CALCIUM (BEAKER) (test 8.5 mg/dL 8.4-10.2 qlrj=540) EGFR (BEAKER) (test 92 mL/min/1.73 sq m ESTIMATED GFR IS NOT jusq=0852) ACCURATE CREATININE CLEARANCE IN PREDICTING GLOMERULAR FILTRATION RATE. ESTIMATED GFR IS NOT APPLICABLE FOR DIALYSIS PATIENTS. HEMOGLOBIN AND [id number] 13:38:00 Test Item Value Reference Range Comments HEMOGLOBIN (BEAKER) (test yryp=017) 9.3 GM/DL 13.7-17.5 HEMATOCRIT (BEAKER) (test mrls=650) 29.0 % 40.1-51.0 [id number] 07:51:00 Test Item Value Reference Range Comments AMMONIA (BEAKER) (test 82 mol/L 18-72 Specimen slightly hemolyzed qkhl=980) HEPATIC FUNCTION [id number] 07:29:00 Test Item Value Reference Range Comments TOTAL PROTEIN (BEAKER) (test 6.7 gm/dL 6.0-8.3 Specimen slightly hemolyzed lywp=918) ALBUMIN (BEAKER) (test 3.3 g/dL 3.5-5.0 Specimen slightly hemolyzed tmxm=6718) BILIRUBIN TOTAL (BEAKER) (test 0.4 mg/dL 0.2-1.2 Specimen slightly hemolyzed iydc=736) BILIRUBIN DIRECT (BEAKER) (test 0.2 mg/dL 0.1-0.5 Specimen slightly hemolyzed qsna=470) ALKALINE PHOSPHATASE (BEAKER) 50 U/L 40-150 (test qafx=335) AST (SGOT) (BEAKER) (test 25 U/L 5-34 Specimen slightly hemolyzed gkdm=751) ALT (SGPT) (BEAKER) (test 19 U/L 6-55 Specimen slightly hemolyzed yjib=466) LACTIC ACID, VENOUS, WHOLE [id number] 07:09:00 Test Item Value Reference Range Comments LACTATE BLOOD VENOUS (2) 0.9 mmol/L 0.5-2.2 Specimen slightly hemolyzed (BEAKER) (test dksp=2915) Effective 11/22/2015: Units/Reference Range ChangeNew: 0.5-2.2 mmol/L Previous: 5 -20 mg/dLPROTHROMBIN [id number] 06:23:00 Test Item Value Reference Range Comments PROTIME (BEAKER) (test dhuj=221) 15.1 seconds 11.7-14.7 INR (BEAKER) (test odwu=362) 1.2 <=5.9 RECOMMENDED COUMADIN/WARFARIN INR THERAPY RANGESSTANDARD DOSE: 2.0 - 3.0 Includes: PROPHYLAXIS forvenous thrombosis, systemic embolization; TREATMENT for venous thrombosis and/or pulmonary embolus.HIGH RISK: Target INR is 2.5-3.5 for patients with mechanical heart valves.HEMOGLOBIN AND [id number] 06 :17:00 Test Item Value Reference Range Comments HEMOGLOBIN (BEAKER) (test dgoc=105) 11.1 GM/DL 13.7-17.5 HEMATOCRIT (BEAKER) (test tahl=034) 34.0 % 40.1-51.0 BLOOD [id number] 11:00:00 Test Item Value Reference Range Comments CULTURE (BEAKER) (test vncc=4528) No growth in 5 days BLOOD [id number] 00:00:00 Test Item Value Reference Range Comments CULTURE (BEAKER) (test ahbs=7317) No growth in 5 days CBC W/PLT COUNT & AUTO [id number] 05:50:00 Test Item Value Reference Range Comments WHITE BLOOD CELL COUNT (BEAKER) (test edci=579) 6.0 K/ L 4.0-10.0 RED BLOOD CELL COUNT (BEAKER) (test bker=729) 2.78 M/ L 4.20-5.80 HEMOGLOBIN (BEAKER) (test wjjn=233) 9.1 GM/DL 13.0-16.8 HEMATOCRIT (BEAKER) (test wupf=015) 26.8 % 40.0-50.0 MEAN CORPUSCULAR VOLUME (BEAKER) (test pjbs=512) 96.2 fL 82.0-98.0 MEAN CORPUSCULAR HEMOGLOBIN (BEAKER) (test 32.7 pg 27.0-33.0 bgwb=197) MEAN CORPUSCULAR HEMOGLOBIN CONC (BEAKER) (test 34.0 GM/DL 32.0-36.0 tzzb=783) RED CELL DISTRIBUTION WIDTH (BEAKER) (test 13.8 % 10.3-14.2 vwdo=009) PLATELET COUNT (BEAKER) (test hpxv=461) 280 K/CU MM 150-430 MEAN PLATELET VOLUME (BEAKER) (test eaqf=651) 7.5 fL 6.5-10.5 NUCLEATED RED BLOOD CELLS (BEAKER) (test 0 /100 WBC 0-0 ccaa=988) NEUTROPHILS RELATIVE PERCENT (BEAKER) (test 58 % btqu=966) LYMPHOCYTES RELATIVE PERCENT (BEAKER) (test 28 % enue=443) MONOCYTES RELATIVE PERCENT (BEAKER) (test 9 % fruu=350) EOSINOPHILS RELATIVE PERCENT (BEAKER) (test 5 % qnms=425) BASOPHILS RELATIVE PERCENT (BEAKER) (test 0 % vscb=683) NEUTROPHILS ABSOLUTE COUNT (BEAKER) (test 3.45 K/ L 1.80-8.00 tevv=149) LYMPHOCYTES ABSOLUTE COUNT (BEAKER) (test 1.68 K/ L 1.48-4.50 upgf=128) MONOCYTES ABSOLUTE COUNT (BEAKER) (test 0.54 K/ L 0.00-1.30 zjon=214) EOSINOPHILS ABSOLUTE COUNT (BEAKER) (test 0.31 K/ L 0.00-0.50 egga=174) BASOPHILS ABSOLUTE COUNT (BEAKER) (test 0.01 K/ L 0.00-0.20 ooyl=536) 0.00URINE [id number] 09:56:00 Test Item Value Reference Range Comments CULTURE (BEAKER) (test bfsd=3175) No growth [id number] 05:00:00 Test Item Value Reference Range Comments MAGNESIUM (BEAKER) (test 1.8 mg/dL 1.6-2.6 Specimen slightly hemolyzed znzy=947) BASIC METABOLIC [id number] 05:00:00 Test Item Value Reference Range Comments SODIUM (BEAKER) (test 132 meq/L 136-145 ghtn=034) POTASSIUM (BEAKER) (test 3.8 meq/L 3.5-5.1 Specimen slightly jamu=772) hemolyzed CHLORIDE (BEAKER) (test 101 meq/L 98-107 eudx=373) CO2 (BEAKER) (test 23 meq/L 22-29 uxoh=614) BLOOD UREA NITROGEN 7 mg/dL 7-21 (BEAKER) (test vrrd=527) CREATININE (BEAKER) (test 0.86 mg/dL 0.57-1.25 Specimen slightly zjzc=713) hemolyzed GLUCOSE RANDOM (BEAKER) 100 mg/dL 70-105 (test imnr=988) CALCIUM (BEAKER) (test 8.9 mg/dL 8.4-10.2 hlku=266) EGFR (BEAKER) (test 90 mL/min/1.73 sq m ESTIMATED GFR IS NOT ujfe=4805) ACCURATE CREATININE CLEARANCE IN PREDICTING GLOMERULAR FILTRATION RATE. ESTIMATED GFR IS NOT APPLICABLE FOR DIALYSIS PATIENTS. HEPATIC FUNCTION [id number] 05:00:00 Test Item Value Reference Range Comments TOTAL PROTEIN (BEAKER) (test 6.7 gm/dL 6.0-8.3 Specimen slightly hemolyzed hesr=037) ALBUMIN (BEAKER) (test 3.3 g/dL 3.5-5.0 Specimen slightly hemolyzed mtvr=4140) BILIRUBIN TOTAL (BEAKER) (test 0.3 mg/dL 0.2-1.2 Specimen slightly hemolyzed wnkh=729) BILIRUBIN DIRECT (BEAKER) (test 0.1 mg/dL 0.1-0.5 Specimen slightly hemolyzed fkeu=029) ALKALINE PHOSPHATASE (BEAKER) 57 U/L 40-150 (test jvgd=385) AST (SGOT) (BEAKER) (test 23 U/L 5-34 Specimen slightly hemolyzed nmju=282) ALT (SGPT) (BEAKER) (test 14 U/L 6-55 Specimen slightly hemolyzed ykev=560) CBC W/PLT COUNT & AUTO [id number] 04:46:00 Test Item Value Reference Range Comments WHITE BLOOD CELL COUNT (BEAKER) (test jvzd=542) 7.3 K/ L 4.0-10.0 RED BLOOD CELL COUNT (BEAKER) (test nrbz=707) 2.77 M/ L 4.20-5.80 HEMOGLOBIN (BEAKER) (test daes=438) 9.0 GM/DL 13.0-16.8 HEMATOCRIT (BEAKER) (test dznn=838) 26.6 % 40.0-50.0 MEAN CORPUSCULAR VOLUME (BEAKER) (test zptr=047) 95.9 fL 82.0-98.0 MEAN CORPUSCULAR HEMOGLOBIN (BEAKER) (test 32.6 pg 27.0-33.0 ollu=223) MEAN CORPUSCULAR HEMOGLOBIN CONC (BEAKER) (test 34.0 GM/DL 32.0-36.0 okzy=548) RED CELL DISTRIBUTION WIDTH (BEAKER) (test 13.7 % 10.3-14.2 uhuk=988) PLATELET COUNT (BEAKER) (test goxu=201) 273 K/CU MM 150-430 MEAN PLATELET VOLUME (BEAKER) (test kctx=725) 8.0 fL 6.5-10.5 NUCLEATED RED BLOOD CELLS (BEAKER) (test 0 /100 WBC 0-0 svpe=198) NEUTROPHILS RELATIVE PERCENT (BEAKER) (test 64 % luno=986) LYMPHOCYTES RELATIVE PERCENT (BEAKER) (test 22 % cwrt=402) MONOCYTES RELATIVE PERCENT (BEAKER) (test 9 % ylmx=794) EOSINOPHILS RELATIVE PERCENT (BEAKER) (test 4 % cyul=302) BASOPHILS RELATIVE PERCENT (BEAKER) (test 0 % ueif=747) NEUTROPHILS ABSOLUTE COUNT (BEAKER) (test 4.66 K/ L 1.80-8.00 xscf=400) LYMPHOCYTES ABSOLUTE COUNT (BEAKER) (test 1.59 K/ L 1.48-4.50 qfvv=550) MONOCYTES ABSOLUTE COUNT (BEAKER) (test 0.68 K/ L 0.00-1.30 qpfw=095) EOSINOPHILS ABSOLUTE COUNT (BEAKER) (test 0.31 K/ L 0.00-0.50 nsov=887) BASOPHILS ABSOLUTE COUNT (BEAKER) (test 0.01 K/ L 0.00-0.20 vxds=895) 0.00PROTHROMBIN [id number] 04:45:00 Test Item Value Reference Range Comments PROTIME (BEAKER) (test euyd=173) 14.2 seconds 11.7-14.7 INR (BEAKER) (test jnqv=418) 1.1 <=5.9 RECOMMENDED COUMADIN/WARFARIN INR THERAPY RANGESSTANDARD DOSE: 2.0 - 3.0 Includes: PROPHYLAXIS forvenous thrombosis, systemic embolization; TREATMENT for venous thrombosis and/or pulmonary embolus.HIGH RISK: Target INR is 2.5-3.5 for patients with mechanical heart valves.[id number] 04:28:00 Test Item Value Reference Range Comments MAGNESIUM (BEAKER) (test qpzd=033) 1.7 mg/dL 1.6-2.6 BASIC METABOLIC [id number] 04:28:00 Test Item Value Reference Range Comments SODIUM (BEAKER) (test 134 meq/L 136-145 yvpm=206) POTASSIUM (BEAKER) (test 3.8 meq/L 3.5-5.1 wixm=213) CHLORIDE (BEAKER) (test 104 meq/L 98-107 pvdm=285) CO2 (BEAKER) (test 23 meq/L 22-29 znfz=556) BLOOD UREA NITROGEN 9 mg/dL 7-21 (BEAKER) (test odxw=382) CREATININE (BEAKER) (test 0.85 mg/dL 0.57-1.25 ysot=131) GLUCOSE RANDOM (BEAKER) 98 mg/dL 70-105 (test gppk=772) CALCIUM (BEAKER) (test 8.9 mg/dL 8.4-10.2 cnvt=905) EGFR (BEAKER) (test 91 mL/min/1.73 sq m ESTIMATED GFR IS NOT edpc=5532) ACCURATE CREATININE CLEARANCE IN PREDICTING GLOMERULAR FILTRATION RATE. ESTIMATED GFR IS NOT APPLICABLE FOR DIALYSIS PATIENTS. HEPATIC FUNCTION [id number] 04:28:00 Test Item Value Reference Range Comments TOTAL PROTEIN (BEAKER) (test chcz=186) 6.4 gm/dL 6.0-8.3 ALBUMIN (BEAKER) (test qxdu=7156) 3.3 g/dL 3.5-5.0 BILIRUBIN TOTAL (BEAKER) (test ocon=048) 0.2 mg/dL 0.2-1.2 BILIRUBIN DIRECT (BEAKER) (test znrm=883) 0.2 mg/dL 0.1-0.5 ALKALINE PHOSPHATASE (BEAKER) (test yeed=557) 55 U/L 40-150 AST (SGOT) (BEAKER) (test adyv=186) 16 U/L 5-34 ALT (SGPT) (BEAKER) (test qisi=233) 12 U/L 6-55 CBC W/PLT COUNT & AUTO [id number] 04:26:00 Test Item Value Reference Range Comments WHITE BLOOD CELL COUNT (BEAKER) (test yauz=497) 6.2 K/ L 4.0-10.0 RED BLOOD CELL COUNT (BEAKER) (test hyzy=640) 2.80 M/ L 4.20-5.80 HEMOGLOBIN (BEAKER) (test rfyi=303) 9.4 GM/DL 13.0-16.8 HEMATOCRIT (BEAKER) (test nrux=662) 26.9 % 40.0-50.0 MEAN CORPUSCULAR VOLUME (BEAKER) (test bxzc=900) 96.2 fL 82.0-98.0 MEAN CORPUSCULAR HEMOGLOBIN (BEAKER) (test 33.5 pg 27.0-33.0 rfdm=735) MEAN CORPUSCULAR HEMOGLOBIN CONC (BEAKER) (test 34.9 GM/DL 32.0-36.0 shsq=891) RED CELL DISTRIBUTION WIDTH (BEAKER) (test 14.9 % 10.3-14.2 jyuw=993) PLATELET COUNT (BEAKER) (test myux=988) 244 K/CU MM 150-430 MEAN PLATELET VOLUME (BEAKER) (test kvof=785) 7.5 fL 6.5-10.5 NUCLEATED RED BLOOD CELLS (BEAKER) (test 0 /100 WBC 0-0 jsia=879) NEUTROPHILS RELATIVE PERCENT (BEAKER) (test 56 % vqru=308) LYMPHOCYTES RELATIVE PERCENT (BEAKER) (test 27 % rdjb=793) MONOCYTES RELATIVE PERCENT (BEAKER) (test 10 % pwgu=218) EOSINOPHILS RELATIVE PERCENT (BEAKER) (test 6 % tals=934) BASOPHILS RELATIVE PERCENT (BEAKER) (test 1 % otbh=317) NEUTROPHILS ABSOLUTE COUNT (BEAKER) (test 3.48 K/ L 1.80-8.00 mkmp=426) LYMPHOCYTES ABSOLUTE COUNT (BEAKER) (test 1.68 K/ L 1.48-4.50 jnyf=739) MONOCYTES ABSOLUTE COUNT (BEAKER) (test 0.60 K/ L 0.00-1.30 kfux=961) EOSINOPHILS ABSOLUTE COUNT (BEAKER) (test 0.37 K/ L 0.00-0.50 xwrk=735) BASOPHILS ABSOLUTE COUNT (BEAKER) (test 0.05 K/ L 0.00-0.20 ynae=699) 0.00PROTHROMBIN [id number] 04:19:00 Test Item Value Reference Range Comments PROTIME (BEAKER) (test hqtt=769) 15.2 seconds 11.7-14.7 INR (BEAKER) (test xsfu=158) 1.2 <=5.9 RECOMMENDED COUMADIN/WARFARIN INR THERAPY RANGESSTANDARD DOSE: 2.0 - 3.0 Includes: PROPHYLAXIS forvenous thrombosis, systemic embolization; TREATMENT for venous thrombosis and/or pulmonary embolus.HIGH RISK: Target INR is 2.5-3.5 for patients with mechanical heart valves.URINALYSIS W/ [id number] 16 :59:00 Test Item Value Reference Range Comments COLOR (BEAKER) (test zymj=551) Light Yellow CLARITY (BEAKER) (test alrx=030) Clear SPECIFIC GRAVITY UA (BEAKER) (test xpda=029) 1.005 1.001-1.035 PH UA (BEAKER) (test ueym=554) 6.5 5.0-8.0 PROTEIN UA (BEAKER) (test guwj=464) Negative Negative GLUCOSE UA (BEAKER) (test xwpa=178) Negative Negative KETONES UA (BEAKER) (test hwks=115) Negative Negative BILIRUBIN UA (BEAKER) (test zipk=133) Negative Negative BLOOD UA (BEAKER) (test pzpp=255) Negative Negative NITRITE UA (BEAKER) (test dnlf=061) Negative Negative LEUKOCYTE ESTERASE UA (BEAKER) (test wjvy=290) Negative Negative UROBILINOGEN UA (BEAKER) (test qpxu=136) 0.2 mg/dL 0.2-1.0 RBC UA (BEAKER) (test gpex=244) < /HPF WBC UA (BEAKER) (test ptxz=368) 1 /HPF SOURCE(BEAKER) (test jovo=1548) Urine, Voided RAPID DRUG SCREEN, [id number] 16:59:00 Test Item Value Reference Range Comments BARBITURATE URINE (BEAKER) (test zoer=671) Negative Negative BENZODIAZEPINE SCREEN URINE (BEAKER) (test Positive Negative nerc=653) COCAINE (METAB.) SCREEN (BEAKER) (test mlwg=9598) Negative Negative METHADONE SCREEN (BEAKER) (test exlm=2190) Negative Negative OPIATE SCREEN URINE (BEAKER) (test tvku=668) Negative Negative CANNABINOID SCREEN URINE (BEAKER) (test atca=975) Negative Negative AMPH/METHAMPH SCREEN (BEAKER) (test qxnd=9702) Negative Negative PHENCYCLIDINE SCREEN URINE (BEAKER) (test vnve=547) Negative Negative OXYCODONE SCREEN URINE (BEAKER) (test hccp=0306) Negative Negative DRUG CUTOFF CONC.Cocaine 300 ng/mL Cannabinoid 50 ng/mL Benzodiazepine 200 ng/mLBarbiturate 200 ng/ mLPhencyclidine 25 ng/mLOpiate 300 ng/mLMethadone 300 ng/mLAmphetamine/ 1000 ng/mL MethamphetamineOxycodone 300 ng/mLThis assay provides an unconfirmed qualitative test result for the clinical management of patients in emergency situations. Chain of custody not maintained. Some uchz-jtl-mejeeec medications, as well as adulterants, may cause inaccurate results. Clinical correlation should be applied. A more comprehensive drug screen or confirmation of a detected drug may be performed upon request.HEMOGLOBIN AND [id number] 16:42:00 Test Item Value Reference Range Comments HEMOGLOBIN (BEAKER) (test nivp=844) 9.7 GM/DL 13.0-16.8 HEMATOCRIT (BEAKER) (test vxkc=585) 28.9 % 40.0-50.0 POCT-LACTIC ACID, [id number] 10:41:00 Test Item Value Reference Range Comments POC-LACTIC ACID, ARTERIAL 0.5 mmol/L 0.4-1.3 TESTED AT [address] (BEAKER) (test oxvd=2555) [place] [address] POCT-BLOOD GASES, [id number] 10:35:00 Test Item Value Reference Range Comments TEMP, CELSIUS-POC (BEAKER) 37.0 (test zbnk=3815) FIO2-POC (BEAKER) (test TESTED AT [address] dqhd=6277) [place] [address] PH, ARTERIAL-POC (BEAKER) 7.387 7.350-7.450 (test vkeu=7202) PCO2, ARTERIAL-POC (BEAKER) 41.4 mm Hg 35.0-45.0 (test rzlg=5262) PO2, ARTERIAL-POC (BEAKER) 74.0 mm Hg 80.0-90.0 (test hfie=2201) SO2, ARTERIAL-POC (BEAKER) 94.0 % 96.0-97.0 (test kwjd=7240) HCO3, ARTERIAL-POC (BEAKER) 24.9 meq/L 21.0-29.0 (test snye=1414) BASE EXCESS, ARTERIAL-POC 0.0 meq/L -2.0-3.0 (BEAKER) (test czee=1426) [id number] 10:35:00 Test Item Value Reference Range Comments POC-SODIUM (BEAKER) (test 136 meq/L 135-148 TESTED AT [address] syxv=8728) [place] [address] [id number] 10:35:00 Test Item Value Reference Range Comments POC-POTASSIUM (BEAKER) (test 3.9 meq/L 3.6-5.5 TESTED AT [address] lxwq=0454) [place] [address] [id number] 10:35:00 Test Item Value Reference Range Comments POC-GLUCOSE (BEAKER) (test 140 mg/dL 70-110 TESTED AT [address] wghu=0254) [place] [address] POCT-CALCIUM [id number] 10:35:00 Test Item Value Reference Range Comments POC-CALCIUM IONIZED (BEAKER) 1.34 mmol/L 1.12-1.27 TESTED AT [address] (test ojsw=4697) [place] [address] [id number] 10:35:00 Test Item Value Reference Range Comments POC-HEMATOCRIT (BEAKER) (test 27 % 40-50 TESTED AT [address] oxpr=2534) [place] [address] [id number] 10:35:00 Test Item Value Reference Range Comments POC-HEMOGLOBIN (BEAKER) 9.2 g/dL 13.0-16.8 TESTED AT [address] (test wzyu=7296) [place] [address] CBC (HEMOGRAM ONLY)2017-01-18 09:53:00 Test Item Value Reference Range Comments WHITE BLOOD CELL COUNT (BEAKER) (test qvbc=045) 10.6 K/ L 4.0-10.0 RED BLOOD CELL COUNT (BEAKER) (test sgke=538) 2.99 M/ L 4.20-5.80 HEMOGLOBIN (BEAKER) (test pkwn=236) 9.9 GM/DL 13.0-16.8 HEMATOCRIT (BEAKER) (test fqhv=409) 29.1 % 40.0-50.0 MEAN CORPUSCULAR VOLUME (BEAKER) (test gexs=474) 97.5 fL 82.0-98.0 MEAN CORPUSCULAR HEMOGLOBIN (BEAKER) (test 33.2 pg 27.0-33.0 vvvj=735) MEAN CORPUSCULAR HEMOGLOBIN CONC (BEAKER) (test 34.1 GM/DL 32.0-36.0 zmhs=509) RED CELL DISTRIBUTION WIDTH (BEAKER) (test 13.8 % 10.3-14.2 pgri=928) PLATELET COUNT (BEAKER) (test enas=944) 282 K/CU MM 150-430 MEAN PLATELET VOLUME (BEAKER) (test vbxw=546) 8.0 fL 6.5-10.5 NUCLEATED RED BLOOD CELLS (BEAKER) (test 0 /100 WBC 0-0 gtsz=478) [id number] 08:25:00 Test Item Value Reference Range Comments AMMONIA (BEAKER) (test 75 mol/L 18-72 Specimen moderately hemolyzed fonn=204) [id number] 08:21:00 Test Item Value Reference Range Comments MAGNESIUM (BEAKER) (test fpbe=979) 1.7 mg/dL 1.6-2.6 BASIC METABOLIC [id number] 08:21:00 Test Item Value Reference Range Comments SODIUM (BEAKER) (test 134 meq/L 136-145 ucdd=331) POTASSIUM (BEAKER) (test 4.1 meq/L 3.5-5.1 hnaw=403) CHLORIDE (BEAKER) (test 104 meq/L 98-107 ogys=110) CO2 (BEAKER) (test 23 meq/L 22-29 zuja=722) BLOOD UREA NITROGEN 15 mg/dL 7-21 (BEAKER) (test otie=291) CREATININE (BEAKER) (test 0.92 mg/dL 0.57-1.25 ngof=078) GLUCOSE RANDOM (BEAKER) 96 mg/dL 70-105 (test lqfg=137) CALCIUM (BEAKER) (test 9.2 mg/dL 8.4-10.2 ieeu=441) EGFR (BEAKER) (test 83 mL/min/1.73 sq m ESTIMATED GFR IS NOT ncju=2551) ACCURATE CREATININE CLEARANCE IN PREDICTING GLOMERULAR FILTRATION RATE. ESTIMATED GFR IS NOT APPLICABLE FOR DIALYSIS PATIENTS. HEPATIC FUNCTION [id number] 08:21:00 Test Item Value Reference Range Comments TOTAL PROTEIN (BEAKER) (test qgdj=777) 6.5 gm/dL 6.0-8.3 ALBUMIN (BEAKER) (test slcb=9179) 3.4 g/dL 3.5-5.0 BILIRUBIN TOTAL (BEAKER) (test dcpl=092) 0.4 mg/dL 0.2-1.2 BILIRUBIN DIRECT (BEAKER) (test lksm=966) 0.2 mg/dL 0.1-0.5 ALKALINE PHOSPHATASE (BEAKER) (test keyt=739) 57 U/L 40-150 AST (SGOT) (BEAKER) (test nfko=225) 20 U/L 5-34 ALT (SGPT) (BEAKER) (test womv=043) 14 U/L 6-55 LACTIC ACID, VENOUS, WHOLE [id number] 08:13:00 Test Item Value Reference Range Comments LACTATE BLOOD VENOUS (2) 1.2 mmol/L 0.5-2.2 Specimen moderately hemolyzed (BEAKER) (test dwpj=4903) Effective 11/22/2015: Units/Reference Range ChangeNew: 0.5-2.2 mmol/L Previous: 5 -20 mg/dLPT/[id number] 07:58:00 Test Item Value Reference Range Comments PROTIME (BEAKER) (test lvux=470) 14.5 seconds 11.7-14.7 INR (BEAKER) (test jygc=397) 1.1 <=5.9 PARTIAL THROMBOPLASTIN TIME (BEAKER) (test 26.9 seconds 22.5-36.0 mlvj=640) RECOMMENDED COUMADIN/WARFARIN INR THERAPY RANGESSTANDARD DOSE: 2.0 - 3.0 Includes: PROPHYLAXIS forvenous thrombosis, systemic embolization; TREATMENT for venous thrombosis and/or pulmonary embolus.HIGH RISK: Target INR is 2.5-3.5 for patients with mechanical heart valves.[id number] 19:24:00 Test Item Value Reference Range Comments MAGNESIUM (BEAKER) (test 1.8 mg/dL 1.6-2.6 Specimen slightly hemolyzed vjvm=538) COMPREHENSIVE METABOLIC [id number] 19:24:00 Test Item Value Reference Range Comments TOTAL PROTEIN (BEAKER) 6.8 gm/dL 6.0-8.3 Specimen slightly (test hdkw=761) hemolyzed ALBUMIN (BEAKER) (test 3.4 g/dL 3.5-5.0 Specimen slightly otyo=4791) hemolyzed ALKALINE PHOSPHATASE 59 U/L 40-150 (BEAKER) (test rbjm=164) BILIRUBIN TOTAL (BEAKER) 0.3 mg/dL 0.2-1.2 Specimen slightly (test vlfa=935) hemolyzed SODIUM (BEAKER) (test 134 meq/L 136-145 wxsb=011) POTASSIUM (BEAKER) (test 4.5 meq/L 3.5-5.1 Specimen slightly nqrg=417) hemolyzed CHLORIDE (BEAKER) (test 106 meq/L 98-107 rqef=785) CO2 (BEAKER) (test 20 meq/L 22-29 hjtl=830) BLOOD UREA NITROGEN 19 mg/dL 7-21 (BEAKER) (test ftrs=686) CREATININE (BEAKER) (test 0.93 mg/dL 0.57-1.25 Specimen slightly zcmb=536) hemolyzed GLUCOSE RANDOM (BEAKER) 125 mg/dL 70-105 (test xiyi=766) CALCIUM (BEAKER) (test 9.1 mg/dL 8.4-10.2 qqfg=668) AST (SGOT) (BEAKER) (test 22 U/L 5-34 Specimen slightly cott=764) hemolyzed ALT (SGPT) (BEAKER) (test 17 U/L 6-55 Specimen slightly jsfz=648) hemolyzed EGFR (BEAKER) (test 82 mL/min/1.73 sq m ESTIMATED GFR IS NOT bsgt=4847) ACCURATE CREATININE CLEARANCE IN PREDICTING GLOMERULAR FILTRATION RATE. ESTIMATED GFR IS NOT APPLICABLE FOR DIALYSIS PATIENTS.
[2017-11-05 09:59] LABS: Absolute Lymphocytes (CBC) 1.2 K/uL (0.7-4.9); Absolute Monocytes 1.5 K/uL (0.1-1.3); Absolute Neutrophil 7.2 K/uL (1.8-8.0); Basophils % 0.3 % (0-1.3); Eosinophils % 0.4 % (0-4.4); MCH 23.9 pg (27.0-35.0); MCV 76.3 fL (80-100); MPV 8.9 fL (7.6-11.3); Monocytes % 14.8 % (3.3-12.3); RBC Red Blood Cell Count 3.92 M/uL (4.33-5.43)
[2017-11-05 10:13] LABS: Bicarbonate 25 mEq/L (21-31); Glucose Level 132 mg/dL (65-120); Lipase 40 U/L (22-51); Potassium 3.9 mEq/L (3.6-5.0); Sodium Level 133 mEq/L (135-145)
[2017-11-05 10:19] LABS: ALT/SGPT 25 IU/L (10-60); AST/SGOT 26 IU/L (10-42); Albumin 4.1 g/dL (3.2-5.5); Alkaline Phosphatase 49 IU/L (42-121); BUN Blood Urea Nitrogen 23 mg/dL (6-20); Bilirubin Direct < 0.1 mg/dL (0-0.2); Bilirubin Total 0.3 mg/dL (0.3-1.2); Protein, Total 7.9 g/dL (6.0-8.3)
--- NOTE | 2017-11-05 11:09 | ER ---
Nurse's Notes [facility] Name: Errol Dior Age: 62 yrs Sex: Male : 1955 Arrival Date: 11/05/2017 Time: 09:12 Bed 3 Private MD: Diagnosis: Vomiting Presentation: 11/05 09:16 Presenting complaint: EMS states: EMS states [facility] staff call EMS ae1 because patient was hypotensive and tachycardic after having vomited what resembled "coffee ground emesis". Transition of care: [facility]. Onset of symptoms was November 05, 2017. Initial Sepsis Screen: Does the patient meet any 2 criteria? RR > 20 per min. HR > 90 bpm. Does the patient have a suspected source of infection? No. Patient's initial sepsis screen is negative. Care prior to arrival: V/S reported from [facility], 140/90, pulse 85-90, FSBS 175. 09:16 Method Of Arrival: EMS: [facility] ae1 09:16 Acuity: JULIETA 3 ae1 Triage Assessment: 09:22 General: Appears in no apparent distress. GI: Reports vomiting. ae1 Historical: - Allergies: 10:26 No Known Allergies; ae1 - Home Meds: 10:26 amlodipine 10 mg tab 1 tab once daily [Active]; Coreg 3.125 mg Oral tab 1 tab 2 times ae1 per day [Active]; folic acid 1 mg Oral tab 1 tab once daily [Active]; Keppra 750 mg Oral tab 1 tab 2 times per day [Active]; lactulose 20 gram/30 mL Oral soln 30 mL twice a day [Active]; Lasix 20 mg Oral tab 1 tab once daily [Active]; pyridoxine (vitamin B6) 100 mg Oral tab daily [Active]; rifaximin Oral 1 tab 2 times per day [Active]; spironolactone 25 mg Oral tab 1 tab once daily [Active]; thiamine HCl (vitamin B1) 50 mg Oral tab [Active]; tramadol 50 mg Oral tab 1 tab every 6 hours [Active]; - PMHx: 10:26 Alcoholism; Back pain; Cirrhosis; CVA; Depression; falls, history of; generalized ae1 weakness; GERD; Hypertension; MUSCLE WEAKNESS; Rheumatoid Arthritis; Seizures; - Immunization history:: Adult Immunizations up to date. - Social history:: Smoking status: Patient/guardian denies using tobacco. Screenin:21 Abuse screen: Denies threats or abuse. Nutritional screening: No deficits noted. ae1 Tuberculosis screening: No symptoms or risk factors identified. Fall Risk No fall in past 12 months (0 pts). Secondary diagnosis (15 points) CVA, IV access (20 points). Ambulatory Aid- None/Bed Rest/Nurse Assist (0 pts). Gait- Weak (10 pts.). Mental Status- Overestimates/Forgets Limitations (15 pts.). Assessment: 09:19 General: Appears in no apparent distress. comfortable, slender, Behavior is calm, ae1 cooperative. Pain: Denies pain. Neuro: Level of Consciousness is awake, alert, obeys commands, Oriented to person, place, situation. Cardiovascular: Heart tones S1 S2 present Patient's skin is warm and dry. Respiratory: Airway is patent Respiratory effort is even, unlabored, Respiratory pattern is regular, symmetrical, Breath sounds are clear bilaterally. GI: Abdomen is flat, non-distended. : Patient has adult brief applied. EENT: Oral mucosa is dry. Poor dentition noted. Derm: Skin is pale. Musculoskeletal: No signs and/or symptoms reported regarding the musculoskeletal system. 10:22 Reassessment: Patient appears in no apparent distress at this time. Patient and/or ae1 family updated on plan of care and expected duration. Pain level reassessed. Patient denies pain at this time. 11:20 Reassessment: Spoke to Gaurav nurse at [facility], via telephone, informed aeSarina Nolasco that patient is being discharged, patient has not vomited during ER stay and transportation needs to be arranged. Gaurav states he will arrange transportation for patient to be returned to [place]. Will continue to monitor. 11:40 Reassessment: Patient c/o nausea, provider notified, new orders received. ae1 11:41 Reassessment: Patient vomited brown grainy liquid. ae1 11:41 Reassessment: Provider notified of vomiting, new labs ordered. ae1 13:00 Reassessment: Patient updated on wait time for lab results. ae1 14:30 Reassessment: Patient awaiting lab results. no apparent distress. Patient denies pain ae1 and nausea. Lab results communicated to patient. Provider at bedside discussing plan of care with patient. Patient awaiting transport back to [facility]. Vital Signs: 09:13 BP 129 / 107; Pulse 95; Resp 22; Temp 99(O); Pulse Ox 98% on R/A; Weight 68.04 kg (R); ae1 Pain 0/10; 10:20 BP 116 / 91; Pulse 80; Resp 15 S; Pulse Ox 99% on R/A; ae1 11:36 BP 132 / 98; Pulse 85; Resp 16; Pulse Ox 99% on R/A; Pain 0/10; ae1 14:17 BP 137 / 95; Pulse 89; Resp 18; Pulse Ox 96% on R/A; ae1 ED Course: 09:12 Patient arrived in ED. ae1 09:12 Lv Charles PA is PHCP. jr8 09:12 Akash Munson MD is Attending Physician. jr8 09:18 Triage completed. ae1 09:19 Arm band placed on right wrist. ae1 09:19 Placed in gown. Bed in low position. Call light in reach. Side rails up X2. Pulse ox ae1 on. NIBP on. Warm blanket given. 09:49 EKG done, by truck service technician. reviewed by Lv ALEXIS. at1 09:52 Initial lab(s) drawn, by ne, sent to lab. T\\T\\S collected, blood band applied to patient. jb1 Inserted saline lock: 22 gauge in right forearm, using aseptic technique. Blood collected. 10:08 Ugo Song, RN is Primary Nurse. ae1 11:07 Odilon Ward MD is Referral Physician. jr8 14:47 No provider procedures requiring assistance completed. IV discontinued, intact, ae1 bleeding controlled, No redness/swelling at site. Pressure dressing applied. Administered Medications: 11:44 Drug: Zofran 4 mg Route: IVP; Site: right forearm; ae1 14:31 Follow up: Response: Nausea is decreased ae1 Outcome: 11:08 Discharge ordered by . jr8 14:47 Discharged to alf. Report called to Gaurav via telephone at [facility] ae1 Home. 14:47 Condition: stable 14:49 Discharge instructions given to alf, Instructed on discharge instructions, ae1 follow up and referral plans. Demonstrated understanding of instructions. 14:50 Patient left the ED. ae1 Signatures: [facility] Gonzalez jb1 Lv Charles PA PA jr8 Idania goldman, marketing services rep EKG Tat1 Ugo Song, RN RN ae1 Corrections: (The following items were deleted from the chart) 19:41 14:30 Reassessment: Patient awaiting lab results. no apparent distress. Patient denies ae1 pain and nausea. ae1
--- NOTE | 2017-11-05 11:09 | EDPHYS ---
Physician Documentation [facility] Name: Errol Dior Age: 62 yrs Sex: Male : 1955 Arrival Date: 11/05/2017 Time: 09:12 Bed 3 Private MD: ED Physician Akash Munson HPI: 11/05 09:25 This 62 yrs old Male presents to ER via EMS with complaints of Vomiting. jr8 09:25 The patient presents to the emergency department with nausea, vomiting. Onset: The jr8 symptoms/episode began/occurred acutely, today. Possible causes: unknown. The symptoms are aggravated by nothing. The symptoms are alleviated by nothing. Associated signs and symptoms: The patient has no apparent associated signs or symptoms. Severity of symptoms: At their worst the symptoms were mild in the emergency department the symptoms are unchanged. It is unknown whether or not the patient has had similar symptoms in the past. The patient has not recently seen a physician. EMS stated that they were called out for vomiting that was suspicious for coffee ground like emesis with hypotension and tachycardia. Upon arrival patient alert and oriented to person, place, time, event. No acute distress. No vomiting . Historical: - Allergies: 10:26 No Known Allergies; ae1 - Home Meds: 10:26 amlodipine 10 mg tab 1 tab once daily [Active]; Coreg 3.125 mg Oral tab 1 tab 2 times ae1 per day [Active]; folic acid 1 mg Oral tab 1 tab once daily [Active]; Keppra 750 mg Oral tab 1 tab 2 times per day [Active]; lactulose 20 gram/30 mL Oral soln 30 mL twice a day [Active]; Lasix 20 mg Oral tab 1 tab once daily [Active]; pyridoxine (vitamin B6) 100 mg Oral tab daily [Active]; rifaximin Oral 1 tab 2 times per day [Active]; spironolactone 25 mg Oral tab 1 tab once daily [Active]; thiamine HCl (vitamin B1) 50 mg Oral tab [Active]; tramadol 50 mg Oral tab 1 tab every 6 hours [Active]; - PMHx: 10:26 Alcoholism; Back pain; Cirrhosis; CVA; Depression; falls, history of; generalized ae1 weakness; GERD; Hypertension; MUSCLE WEAKNESS; Rheumatoid Arthritis; Seizures; - Immunization history:: Adult Immunizations up to date. - Social history:: Smoking status: Patient/guardian denies using tobacco. ROS: 09:25 Eyes: Negative for injury, pain, redness, and discharge, ENT: Negative for injury, jr8 pain, and discharge, Neck: Negative for injury, pain, and swelling, Cardiovascular: Negative for chest pain, palpitations, and edema, Respiratory: Negative for shortness of breath, cough, wheezing, and pleuritic chest pain, Back: Negative for injury and pain, MS/Extremity: Negative for injury and deformity, Skin: Negative for injury, rash, and discoloration, Neuro: Negative for headache, weakness, numbness, tingling, and seizure. 09:25 Abdomen/GI: Positive for nausea and vomiting, Negative for abdominal pain, constipation, abdominal cramps, abdominal distension, anorexia, dysphagia, hematemesis, black/tarry stool, rectal pain, rectal bleeding, bowel incontinence, flatulence. Exam: 09:25 Eyes: Pupils equal round and reactive to light, extra-ocular motions intact. Lids and jr8 lashes normal. Conjunctiva and sclera are non-icteric and not injected. Cornea within normal limits. Periorbital areas with no swelling, redness, or edema. ENT: Nares patent. No nasal discharge, no septal abnormalities noted. Tympanic membranes are normal and external auditory canals are clear. Oropharynx with no redness, swelling, or masses, exudates, or evidence of obstruction, uvula midline. Mucous membranes moist. Neck: Trachea midline, no thyromegaly or masses palpated, and no cervical lymphadenopathy. Supple, full range of motion without nuchal rigidity, or vertebral point tenderness. No Meningismus. Cardiovascular: Regular rate and rhythm with a normal S1 and S2. No gallops, murmurs, or rubs. Normal PMI, no JVD. No pulse deficits. Respiratory: Lungs have equal breath sounds bilaterally, clear to auscultation and percussion. No rales, rhonchi or wheezes noted. No increased work of breathing, no retractions or nasal flaring. Back: No spinal tenderness. No costovertebral tenderness. Full range of motion. Skin: Warm, dry with normal turgor. Normal color with no rashes, no lesions, and no evidence of cellulitis. MS/ Extremity: Pulses equal, no cyanosis. Neurovascular intact. Full, normal range of motion. Neuro: Awake and alert, GCS 15, oriented to person, place, time, and situation. Cranial nerves II-XII grossly intact. Motor strength 5/5 in all extremities. Sensory grossly intact. Cerebellar exam normal. Normal gait. 09:25 Abdomen/GI: Inspection: abdomen appears normal, Bowel sounds: active, all quadrants, Palpation: abdomen is soft and non-tender, in all quadrants, mass, is not appreciated, rebound tenderness, is not appreciated, voluntary guarding, is not appreciated, involuntary guarding, is not appreciated, no appreciated organomegaly, Indicators: McBurney's point is not tender, Gomez's sign is negative, Rovsing's sign is negative, Liver: no appreciated palpable abnormalities, tenderness, is not appreciated. Vital Signs: 09:13 BP 129 / 107; Pulse 95; Resp 22; Temp 99(O); Pulse Ox 98% on R/A; Weight 68.04 kg (R); ae1 Pain 0/10; 10:20 BP 116 / 91; Pulse 80; Resp 15 S; Pulse Ox 99% on R/A; ae1 11:36 BP 132 / 98; Pulse 85; Resp 16; Pulse Ox 99% on R/A; Pain 0/10; ae1 14:17 BP 137 / 95; Pulse 89; Resp 18; Pulse Ox 96% on R/A; ae1 MDM: 09:12 Patient medically screened. 8 11:06 Data reviewed: vital signs, nurses notes, lab test result(s), and as a result, I will jr8 discharge patient. Data interpreted: Pulse oximetry: on room air is 99 %. Interpretation: normal. Counseling: I had a detailed discussion with the patient and/or guardian regarding: the historical points, exam findings, and any diagnostic results supporting the discharge/admit diagnosis, lab results, the need for outpatient follow up, a family practitioner, to return to the emergency department if symptoms worsen or persist or if there are any questions or concerns that arise at home. ED course: Patient hemodynamically stable with no abnormal vital signs suggesting hypotension. Labs baseline for patient. No hematemesis while in ED. Abdomen has remained soft and non tender. Talked to Dr. Cain and is good with sending back to [facility] and to f/u with Dr. Ward. 14:36 ED course: Vomited once before discharged. Repeated H/H. Negligible change. Will still jr8 send back to f/u with GI. 11/05 09:12 Order name: Basic Metabolic Panel; Complete Time: 10:36 11/05 09:12 Order name: CBC with Diff; Complete Time: 10:10 11/05 09:12 Order name: Creatinine for Radiology; Complete Time: 10:13 11/05 09:12 Order name: Hepatic Function; Complete Time: 10:36 11/05 09:12 Order name: Lipase; Complete Time: 10:36 11/05 09:12 Order name: TS; Complete Time: 11:36 11/05 09:12 Order name: IV Saline Lock; Complete Time: :52 11/05 09:12 Order name: Labs collected and sent; Complete Time: :52 11/05 12:04 Order name: Hemoglobin; Complete Time: 14:36 ae11/05 12:04 Order name: Hematocrit; Complete Time: 14:36 ae11/05 12:49 Order name: EKG Electrocardiogram EDMS Administered Medications: 11:44 Drug: Zofran 4 mg Route: IVP; Site: right forearm; ae1 14:31 Follow up: Response: Nausea is decreased ae1 Disposition: 11/05/17 11:08 Discharged to Home. Impression: Vomiting. - Condition is Stable. - Discharge Instructions: Gastrointestinal Bleeding, Nausea and Vomiting. - Medication Reconciliation Form, Thank You Letter, Antibiotic Education, Prescription Opioid Use form. - Follow up: Odilon Ward MD; When: 2 - 3 days; Reason: Recheck today's complaints, Continuance of care, Re-evaluation by your physician. - Problem is new. - Symptoms have improved. Addendum: 11/08/2017 06:12 Co-signature as Attending Physician, Akash Munson MD Available for consultation at p s1 all times. . Signatures: Dispatcher [employer] EDMS Lv Charles PA PA jr8 Ugo Song, RN RN ae1 Akash Munson MD MD ps1
[2017-11-05] MEDS ORDERED: ONDANSETRON 4 MG/2 ML VIAL ONE (11:39)
[2017-11-05 14:32] LABS: Hematocrit 29.6 % (39.6-49.0)
--- NOTE | 2017-11-05 14:55 | EKG ---
Test Date: 2017-11-05 Test Time: 09:42:21 Assisted Living Manager: JOSÉ LUIS MEASUREMENT RESULTS: Intervals: Rate: 84 DC: 150 QRSD: 124 QT: 372 QTc: 439 Reliance: P: 36 DC: 150 QRS: -19 T: 29 INTERPRETIVE STATEMENTS: Normal sinus rhythm Right bundle branch block Abnormal ECG Compared to ECG 09/04/2017 08:37:42 Right bundle-branch block now present Electronically Signed On 11-05-17 14:54:17 CDT by Colt Grant
== END 2017-11-05 14:50 | disposition home or self-care (01) ==
LOC: ER 09:06
DX: R11.10 Vomiting, unspecified (principal); K74.60 Unspecified cirrhosis of liver; F10.20 Alcohol dependence, uncomplicated; I10 Essential (primary) hypertension; G40.909 Epilepsy, unspecified, not intractable, without status epilepticus; Z86.73 Personal history of transient ischemic attack (TIA), and cerebral infarction without residual deficits
CPT/HCPCS: 36415; 80048; 80076; 83690; 85014; 85018; 85025; 86850; 86900; 86901; 93005; 96374; 99284; J2405

== ENCOUNTER 2017-12-24 10:13 | Observation (INO) | payer OTHER ==
--- OUTSIDE RECORDS SUMMARY | 2017-12-24 10:16 | XMS REPORT | Clinical Summary ---
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, not intractable, with status epilepticus (HCC);H/O: CVA (cerebrovascular accident);Acute blood loss anemia;Somnolence 01/17/2017 Orders Only General Internal Medicine after 12/23/2016 Social History Tobacco Use Types Packs/Day Years Used Date Never Smoker Alcohol Use Drinks/Week oz/Week Comments Yes Unable to assess Sex Assigned at Date Recorded Not on file Last Filed Vital Signs Vital Sign Reading Time Taken Blood Pressure 100/63 08/30/2017 2:41 PM 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 Pulse 72 08/30/2017 2:41 PM 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 Temperature 36.7 C (98 F) 08/30/2017 2:41 PM 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 Respiratory Rate 17 08/30/2017 2:41 PM 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 Oxygen Saturation 99% 08/30/2017 2:41 PM 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 Inhaled Oxygen Concentration - - Weight 53.7 kg (118 lb 4.8 oz) 08/26/2017 3:41 AM 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 Height 167.6 cm (5' 6") 01/20/2017 7:00 AM CDT Body Mass Index 19.09 08/26/2017 3:41 AM 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 Plan of Treatment Not on file Procedures Procedure Name Priority Date/Time Associated Diagnosis Comments UPPER ENDOSCOPY 08/29/2017 2:00 PM 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 GI BLEED Special Needs EGD WITH ANES UPPER ENDOSCOPY 01/19/2017 8:32 AM CDT Upper G I Bleeding 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 with 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 Special Needs Possible banding after 12/23/2016 Results EKG-SCANNED (09/02/2017 10:00 AM)RHYTHM STRIP - SCAN (09/02/2017 10:00 AM)Only the most recent of3 resultswithin the time period is included.REPORT OF PROCEDURE - ENDOSCOPY URL (08/29/2017 3:02 PM)Only the most recent of2 resultswithin the time period is included.Tissue Exam (08/29/2017 2:38 PM) Component Value Ref Range Case Report Surgical Pathology Report Case: [id number] Authorizing Provider:Kati Rodriguez Collected: 08/29/2017 1438 MD Zoltan Ordering Location: [address] Received: 09/01/2017 0738 Service Pathologist: [...] DYSPLASIA, MALIGNANCY Signing Pathologist Direct Phone Line: [phone] CPT Code(s) [id number] CLINICAL HISTORY A. Random gastric biopsy; B. [...] Laboratory Tissue - Gastric; Tissue - Esophagus [address] [address] POC-Glucose meter (08/29/2017 2:37 PM) Component Value Ref Range POC-Glucose Meter 95Comment: TESTED AT [address] 70 - 110 mg/dL [address] Specimen Performing Laboratory Blood [address] [address] CBC with platelet count + automated diff [...] % Specimen Performing Laboratory Blood - Arm, [address] [address] CBC with platelet count + automated diff (08/29/2017 5:29 AM)Only the most recent of5 resultswithin the time period is included. Specimen Performing Laboratory Blood Narrative The following orders were created for panel order CBC with platelet count + automated diff. Procedure Abnormality Status --------- ------ CBC with platelet count ...[[id number]]AbnormalFinal result Please view results for these tests on the individual orders. Hemoglobin and hematocrit (08/28/2017 11:33 AM)Only the most recent of9 resultswithin the time period is included. Component Value Ref Range Hemoglobin 9.3 (L) 13.7 - 17.5 GM/DL Hematocrit 27.9 (L) 40.1 - 51.0 % Specimen Performing Laboratory Blood - Arm, [address] [address] Urinalysis w/ Microscopic (08/27/2017 8:30 AM)Only the most recent of2 resultswithin the time period is included. Component Value Ref Range Color, UA Yellow Clarity, UA Clear Specific Aragon, UA 1.012 1.001 - 1.035 pH, UA [...] Specimen Performing Laboratory Urine - Urine, Voided [address] [address] Prothrombin time/INR (08/27/2017 4:27 AM)Only the most recent of4 resultswithin the time period is included. Component Value Ref Range Protime 15.4 (H) 11.7 - 14.7 seconds INR 1.2 <=5.9 Specimen Performing Laboratory Blood - Arm, [address] [address] Narrative RECOMMENDED COUMADIN/WARFARIN INR THERAPY RANGES STANDARD [...] PATIENTS. Specimen Performing Laboratory Blood - Arm, [address] [address] Lactic acid, venous, whole blood (08/26/2017 5:37 AM)Only the most recent of2 resultswithin the time period is included. Component Value Ref Range Lactate, Venous 0.9Comment: Specimen slightly hemolyzed 0.5 - 2.2 mmol/L Specimen Performing Laboratory Blood - Arm, [address] [address] Narrative Effective 11/22/2015: Units/Reference Range Change New: 0.5-2.2 mmol/LPrevious: 5-20 mg/dL Ammonia (08/26/2017 5:37 AM)Only the most recent of2 resultswithin the time period is included. Component Value Ref Range Ammonia 82 (H)Comment: Specimen slightly hemolyzed 18 - 72 mol/L Specimen Performing Laboratory Blood - Arm, [address] [address] Hepatic function panel (08/26/2017 5:37 AM)Only the [...] U/L Specimen Performing Laboratory Blood - Arm, [address] [address] EEG AWAKE AND DROWSY (01/20/2017 9:24 AM) Specimen Performing Laboratory GE RIS Narrative DATE OF TEST: 01-20-2017 DATE OF REPORT: 01-20-2017 ICD-10: R56.9 CPT Code: 48450 HISTORY: Patient w/ history of HTN, Hep [...] OF REPORT: 01-20-2017 ICD-10: R56.9 CPT Code: 70967 HISTORY: Patient w/ history of HTN, Hep [...] Specimen Performing Laboratory Blood - Arm, [place] [address] US abdomen complete (01/19/2017 12:50 AM) Specimen Performing Laboratory [employer] Narrative FINAL REPORT INDICATION: history of cirrohsis [...] MD Report Verified Date/Time:01/19/2017 02:43:10 Reading Location: [address] Transitional Reading Room Procedure Note Interface, [...] Report Verified Date/Time: 01/19/2017 02:43:10 Reading Location: [address] Transitional Reading Room Rapid drug screen, urine (01/18/2017 4:18 PM) Component Value Ref Range Barbiturate Screen Negative Negative Benzodiazepine Screen Positive (A) Negative Cocaine (Metab.) Screen Negative Negative Methadone Screen Negative Negative Opiate Screen Negative Negative Cannabinoid Screen Negative Negative Amph/Methamph Screen Negative Negative Phencyclidine Screen Negative Negative Oxycodone Screen Negative Negative Specimen Performing Laboratory Urine - Urine, Voided [address] [address] Narrative DRUGCUTOFF CONC. Cocaine 300 ng/mL Uybrcozaxoh51 ng/mL Ccwgbjwswvbdtu350 ng/mL Barbiturate 200 ng/mL Tuharhclctbay16 ng/mL Nyhrjq178 ng/mL Methadone 300 ng/mL Amphetamine/ 1000 ng/mL Methamphetamine Oxycodone 300 ng/mL This assay provides an unconfirmed qualitative test result for the clinical management of patients in emergency situations. Chain of custody not maintained. Some nzbe-pnq-fxfwynf medications, as well as adulterants, may cause inaccurate results. Clinical correlation should be applied. A more comprehensive drug screen or confirmation of a detected drug may be performed upon request. Urine culture (01/18/2017 4:17 PM) Component Value Ref Range Result No growth Specimen Performing Laboratory Urine - Urine, Voided [address] [address] [address] brain without IV contrast (01/18/2017 11:26 AM) Specimen Performing Laboratory [employer] Narrative FINAL REPORT CT head without contrast. [...] MD Report Verified Date/Time:01/18/2017 11:56:06 Reading Location: [facility] [id number] Neuro Reading Room Procedure Note Interface, External [...] Report Verified Date/Time: 01/18/2017 11:56:06 Reading Location: [facility] C0V Neuro Reading Room chest 1 view portable [...] MD Report Verified Date/Time:01/18/2017 11:28:30 Reading Location: [place] [id number] Ortho Consult Reading Room Procedure Note Interface, [...] Report Verified Date/Time: 01/18/2017 11:28:30 Reading Location: [address] Ortho Consult Reading Room -Lactic Acid, Arterial (01/18/2017 10:38 AM) Component Value Ref Range POC-Lactic Acid, Arterial 0.5Comment: TESTED AT [address] 0.4 - 1.3 mmol/L [place] [address] Specimen Performing Laboratory [place] [address] POCT-HEMATOCRIT (01/18/2017 10:25 AM) Component Value Ref Range POC-Hematocrit 27 (L)Comment: TESTED AT [facility] [address] [place] [address] 40 - 50 % Specimen Performing Laboratory Blood [address] [address] POCT-HEMOGLOBIN (01/18/2017 10:25 AM) Component Value Ref Range POC-Hemoglobin 9.2 (L)Comment: TESTED AT [address] 13.0 - 16.8 g/dL [place] [address] Specimen Performing Laboratory Blood [address] [address] POCT-GLUCOSE (01/18/2017 10:25 AM) Component Value Ref Range POC-Glucose 140 (H)Comment: TESTED AT [address] 70 - 110 mg/dL [address] Specimen Performing Laboratory Blood [address] [address] POC-Sodium (01/18/2017 10:25 AM) Component Value Ref Range POC-Sodium 136Comment: TESTED AT [place] [address] 135 - 148 meq/L Specimen Performing Laboratory Blood [address] [address] POC-Potassium (01/18/2017 10:25 AM) Component Value Ref Range POC-Potassium 3.9Comment: TESTED AT [address] 3.6 - 5.5 meq/L [address] Specimen Performing Laboratory Blood [address] [address] POC-Calcium ionized (01/18/2017 10:25 AM) Component Value Ref Range POC-Calcium Ionized 1.34 (H)Comment: TESTED AT [address] 1.12 - 1.27 mmol/L [facility] [address] Specimen Performing Laboratory Blood [address] [address] POC-Blood gases, arterial (01/18/2017 10:25 AM) Component Value Ref Range Temp. Celsius-POC 37.0 FIO2-POC Comment: TESTED AT [address] [address] pH, Arterial-POC 7.387 7.350 - 7.450 PCO2, Arterial-POC 41.4 35.0 - 45.0 mm Hg PO2, Arterial-POC 74.0 (L) 80.0 - 90.0 mm Hg SO2, Arterial-POC 94.0 (L) 96.0 - 97.0 % HCO3, Arterilal-POC 24.9 21.0 - 29.0 meq/L BE, Arterial-POC 0.0 -2.0 - 3.0 meq/L Specimen Performing Laboratory Blood [address] [address] ECG 12 lead (01/18/2017 10:13 AM)Only the most recent of2 resultswithin the time period is included. Specimen Performing Laboratory [employer] Narrative Ventricular Rate 52 BPM Atrial Rate 52 BPM P-R Interval 160 ms QRS Duration 94 ms Q-T Interval 454 ms QTC Calculation(Bazett) 422 ms P Aurora 92 degrees R Aurora -15 degrees T [place] 27 degrees Sinus bradycardia Minimal voltage criteria [...] 454 ms QTC Calculation(Bazett) 422 ms P [place] 92 degrees R Aurora -15 degrees T [place] 27 degrees Sinus bradycardia Minimal voltage criteria for LVH, may be normal variant Borderline ECG When compared with ECG of 17-JAN-2017 17:36, No significant change was found Confirmed by MD SPARROW YOCHAI ([id number]) on 01/20/2017 6:14:38 AM Blood culture #2 (01/18/2017 6:30 AM)Only the most recent of2 resultswithin the time period is included. Component Value Ref Range Result No growth in 5 days Specimen Performing Laboratory Blood - Arm, Right [address] [address] Type and screen, automated (01/18/2017 6:29 AM) Component Value Ref Range ABO/RH AUTOMATED (BEAKER) O NEGATIVE Ab Scrn NEGATIVE Specimen Performing Laboratory Blood [address] [address] PT/aPTT (01/18/2017 6:29 AM) Component Value Ref Range Protime 14.5 11.7 - 14.7 seconds INR 1.1 <=5.9 PTT 26.9 22.5 - 36.0 seconds Specimen Performing Laboratory Blood [address] [address] Narrative RECOMMENDED COUMADIN/WARFARIN INR THERAPY RANGES STANDARD [...] 0 /100 WBC Specimen Performing Laboratory Blood [address] [address] Narrative 0.00 Comprehensive metabolic panel (01/17/2017 6:58 [...] PATIENTS. Specimen Performing Laboratory Blood - Arm, Right [address] [address] after 12/23/2016
--- OUTSIDE RECORDS SUMMARY | 2017-12-24 10:16 | XMS REPORT ---
:1955 [facility] Address [address] [place] [address] Care Team Providers Name Role Phone AUSTIN PURVIS Unavailable Unavailable CAROLE ROA Unavailable Unavailable Problems This patient has no known problems. Allergies, Adverse Reactions, Alerts This patient has no known allergies or adverse reactions. Medications This patient has no known medications. Results Test Description Test Time Test Comments Text Results Atomic Results Result Comments TISSUE EXAM 2017-09-02 10:29:00 Surgical Pathology Report Case: [id number] Authorizing Provider: Kati Rodriguez Collected: 08/29/2017 Tristin Charlton MD Ordering Location: [address] Received: 09/01/2017 0738 Service Pathologist: John [...] DYSPLASIA, MALIGNANCY Signing Pathologist Direct Phone Line: [phone] signed by John Cochran MD on 09/02/2017 at 10:29 [id number]. Random gastric biopsy; B. Esophagus biopsyThe specimen [...] (BEAKER) (test 95 mg/dL 70-[address] [facility] [id number] [address] CBC W/PLT COUNT & AUTO [id number] 06:06:00 Test Item Value Reference Range Comments WHITE BLOOD CELL COUNT (BEAKER) (test mgui=541) 5.5 K/ L 3.5-10.5 RED BLOOD CELL COUNT (BEAKER) (test dhpp=069) 3.03 M/ L 4.63-6.08 HEMOGLOBIN (BEAKER) (test gvzx=243) 8.6 GM/DL 13.7-17.5 HEMATOCRIT (BEAKER) (test pyqn=968) 26.0 % 40.1-51.0 MEAN CORPUSCULAR VOLUME (BEAKER) (test ooyw=374) 85.8 fL 79.0-92.2 MEAN CORPUSCULAR HEMOGLOBIN (BEAKER) (test 28.4 pg 25.7-32.2 ycip=631) MEAN CORPUSCULAR HEMOGLOBIN CONC (BEAKER) (test 33.1 GM/DL 32.3-36.5 ajpn=610) RED CELL DISTRIBUTION WIDTH (BEAKER) (test 15.9 % 11.6-14.4 hnie=031) PLATELET COUNT (BEAKER) (test nwtg=495) 205 K/CU MM 150-450 MEAN PLATELET VOLUME (BEAKER) (test ifcp=622) 11.0 fL 9.4-12.4 NUCLEATED RED BLOOD CELLS (BEAKER) (test 0 /100 WBC 0-0 vsfu=237) NEUTROPHILS RELATIVE PERCENT (BEAKER) (test 79 % uash=497) LYMPHOCYTES RELATIVE PERCENT (BEAKER) (test 13 % fuer=801) MONOCYTES RELATIVE PERCENT (BEAKER) (test 6 % tumw=576) EOSINOPHILS RELATIVE PERCENT (BEAKER) (test 2 % vniq=447) BASOPHILS RELATIVE PERCENT (BEAKER) (test 0 % egqm=659) NEUTROPHILS ABSOLUTE COUNT (BEAKER) (test 4.36 K/ L 1.78-5.38 uqcg=956) LYMPHOCYTES ABSOLUTE COUNT (BEAKER) (test 0.73 K/ L 1.32-3.57 uihg=322) MONOCYTES ABSOLUTE COUNT (BEAKER) (test 0.32 K/ L 0.30-0.82 zqea=758) EOSINOPHILS ABSOLUTE COUNT (BEAKER) (test 0.09 K/ L 0.04-0.54 jost=380) BASOPHILS ABSOLUTE COUNT (BEAKER) (test 0.01 K/ L 0.01-0.08 ryyn=378) IMMATURE GRANULOCYTES-RELATIVE PERCENT (BEAKER) 0 % 0-1 (test lzln=1883) HEMOGLOBIN AND [id number] 11:41:00 Test Item Value Reference Range Comments HEMOGLOBIN (BEAKER) (test rnpk=410) 9.3 GM/DL 13.7-17.5 HEMATOCRIT (BEAKER) (test pezb=952) 27.9 % 40.1-51.0 HEMOGLOBIN AND [id number] 08:09:00 Test Item Value Reference Range Comments HEMOGLOBIN (BEAKER) (test njvv=837) 8.7 GM/DL 13.7-17.5 HEMATOCRIT (BEAKER) (test xazb=836) 27.5 % 40.1-51.0 HEMOGLOBIN AND [id number] 21:51:00 Test Item Value Reference Range Comments HEMOGLOBIN (BEAKER) (test shpv=861) 9.3 GM/DL 13.7-17.5 HEMATOCRIT (BEAKER) (test tqna=156) 28.6 % 40.1-51.0 HEMOGLOBIN AND [id number] 15:05:00 Test Item Value Reference Range Comments HEMOGLOBIN (BEAKER) (test hwtu=964) 9.2 GM/DL 13.7-17.5 HEMATOCRIT (BEAKER) (test ozva=878) 28.7 % 40.1-51.0 CBC W/PLT COUNT & AUTO [id number] 11:21:00 Test Item Value Reference Range Comments WHITE BLOOD CELL COUNT (BEAKER) (test dnjn=240) 8.3 K/ L 3.5-10.5 RED BLOOD CELL COUNT (BEAKER) (test tawx=560) 3.00 M/ L 4.63-6.08 HEMOGLOBIN (BEAKER) (test pbak=838) 8.5 GM/DL 13.7-17.5 HEMATOCRIT (BEAKER) (test lxmv=093) 26.6 % 40.1-51.0 MEAN CORPUSCULAR VOLUME (BEAKER) (test nbbw=769) 88.7 fL 79.0-92.2 MEAN CORPUSCULAR HEMOGLOBIN (BEAKER) (test 28.3 pg 25.7-32.2 zahb=321) MEAN CORPUSCULAR HEMOGLOBIN CONC (BEAKER) (test 32.0 GM/DL 32.3-36.5 evni=683) RED CELL DISTRIBUTION WIDTH (BEAKER) (test 16.4 % 11.6-14.4 xbdn=373) PLATELET COUNT (BEAKER) (test mgex=083) 183 K/CU MM 150-450 MEAN PLATELET VOLUME (BEAKER) (test rplc=182) 11.5 fL 9.4-12.4 NUCLEATED RED BLOOD CELLS (BEAKER) (test 0 /100 WBC 0-0 rlxf=512) NEUTROPHILS RELATIVE PERCENT (BEAKER) (test 59 % ndzn=976) LYMPHOCYTES RELATIVE PERCENT (BEAKER) (test 26 % ofrc=489) MONOCYTES RELATIVE PERCENT (BEAKER) (test 13 % ikqv=520) EOSINOPHILS RELATIVE PERCENT (BEAKER) (test 1 % mpgy=714) BASOPHILS RELATIVE PERCENT (BEAKER) (test 0 % dyas=314) NEUTROPHILS ABSOLUTE COUNT (BEAKER) (test 4.89 K/ L 1.78-5.38 dfqv=791) LYMPHOCYTES ABSOLUTE COUNT (BEAKER) (test 2.19 K/ L 1.32-3.57 ekhv=527) MONOCYTES ABSOLUTE COUNT (BEAKER) (test 1.09 K/ L 0.30-0.82 yooi=272) EOSINOPHILS ABSOLUTE COUNT (BEAKER) (test 0.11 K/ L 0.04-0.54 sjne=951) BASOPHILS ABSOLUTE COUNT (BEAKER) (test 0.02 K/ L 0.01-0.08 cmtv=586) IMMATURE GRANULOCYTES-RELATIVE PERCENT (BEAKER) 0 % 0-1 (test list=2375) URINALYSIS W/ [id number] 09:16:00 Test Item Value Reference Range Comments COLOR (BEAKER) (test qadc=217) Yellow CLARITY (BEAKER) (test xwar=892) Clear SPECIFIC GRAVITY UA (BEAKER) (test lzjz=631) 1.012 1.001-1.035 PH UA (BEAKER) (test ypxt=258) 6.0 5.0-8.0 PROTEIN UA (BEAKER) (test qlet=298) Negative Negative GLUCOSE UA (BEAKER) (test lmfa=062) Negative Negative KETONES UA (BEAKER) (test oskf=621) Negative Negative BILIRUBIN UA (BEAKER) (test bsyc=132) Negative Negative BLOOD UA (BEAKER) (test tegr=284) Negative Negative NITRITE UA (BEAKER) (test flrf=755) Negative Negative LEUKOCYTE ESTERASE UA (BEAKER) (test grzg=890) Negative Negative UROBILINOGEN UA (BEAKER) (test xnex=488) 0.2 mg/dL 0.2-1.0 RBC UA (BEAKER) (test wiwc=597) < /HPF WBC UA (BEAKER) (test omuc=200) < /HPF SQUAMOUS EPITHELIAL (BEAKER) (test qocu=663) < /HPF SOURCE(BEAKER) (test uwlw=8523) Urine, Voided PROTHROMBIN [id number] 05:46:00 Test Item Value Reference Range Comments PROTIME (BEAKER) (test omhf=736) 15.4 seconds 11.7-14.7 INR (BEAKER) (test hoca=500) 1.2 <=5.9 RECOMMENDED COUMADIN/WARFARIN INR THERAPY RANGESSTANDARD DOSE: 2.0 - 3.0 Includes: PROPHYLAXIS forvenous thrombosis, systemic embolization; TREATMENT for venous thrombosis and/or pulmonary embolus.HIGH RISK: Target INR is 2.5-3.5 for patients with mechanical heart valves.BASIC METABOLIC [id number] 05:42: 00 Test Item Value Reference Range Comments SODIUM (BEAKER) (test 135 meq/L 136-145 mihu=248) POTASSIUM (BEAKER) (test 3.6 meq/L 3.5-5.1 jkrd=586) CHLORIDE (BEAKER) (test 106 meq/L 98-107 qknv=901) CO2 (BEAKER) (test 22 meq/L 22-29 zznb=247) BLOOD UREA NITROGEN 19 mg/dL 7-21 (BEAKER) (test lwjt=859) CREATININE (BEAKER) (test 0.89 mg/dL 0.57-1.25 qhrp=089) GLUCOSE RANDOM (BEAKER) 84 mg/dL 70-105 (test fsrb=690) CALCIUM (BEAKER) (test 8.9 mg/dL 8.4-10.2 zsdq=853) EGFR (BEAKER) (test 86 mL/min/1.73 sq m ESTIMATED GFR IS NOT tfiy=5280) ACCURATE CREATININE CLEARANCE IN PREDICTING GLOMERULAR FILTRATION RATE. ESTIMATED GFR IS NOT APPLICABLE FOR DIALYSIS PATIENTS. HEMOGLOBIN AND [id number] 05:20:00 Test Item Value Reference Range Comments HEMOGLOBIN (BEAKER) (test aihc=853) 8.4 GM/DL 13.7-17.5 HEMATOCRIT (BEAKER) (test kkop=933) 25.9 % 40.1-51.0 HEMOGLOBIN AND [id number] 20:53:00 Test Item Value Reference Range Comments HEMOGLOBIN (BEAKER) (test mgpe=182) 8.5 GM/DL 13.7-17.5 HEMATOCRIT (BEAKER) (test myqc=602) 26.5 % 40.1-51.0 BASIC METABOLIC [id number] 17:48:00 Test Item Value Reference Range Comments SODIUM (BEAKER) (test 129 meq/L 136-145 vtut=455) POTASSIUM (BEAKER) (test 4.1 meq/L 3.5-5.1 Specimen slightly zhop=797) hemolyzed CHLORIDE (BEAKER) (test 102 meq/L 98-107 ecuo=485) CO2 (BEAKER) (test 23 meq/L 22-29 rxgw=825) BLOOD UREA NITROGEN 21 mg/dL 7-21 (BEAKER) (test xkrk=489) CREATININE (BEAKER) (test 0.84 mg/dL 0.57-1.25 Specimen slightly cbtm=927) hemolyzed GLUCOSE RANDOM (BEAKER) 99 mg/dL 70-105 (test fkew=999) CALCIUM (BEAKER) (test 8.5 mg/dL 8.4-10.2 rpxo=423) EGFR (BEAKER) (test 92 mL/min/1.73 sq m ESTIMATED GFR IS NOT hxkf=5398) ACCURATE CREATININE CLEARANCE IN PREDICTING GLOMERULAR FILTRATION RATE. ESTIMATED GFR IS NOT APPLICABLE FOR DIALYSIS PATIENTS. HEMOGLOBIN AND [id number] 13:38:00 Test Item Value Reference Range Comments HEMOGLOBIN (BEAKER) (test qwrv=072) 9.3 GM/DL 13.7-17.5 HEMATOCRIT (BEAKER) (test kwde=237) 29.0 % 40.1-51.0 [id number] 07:51:00 Test Item Value Reference Range Comments AMMONIA (BEAKER) (test 82 mol/L 18-72 Specimen slightly hemolyzed ffno=971) HEPATIC FUNCTION [id number] 07:29:00 Test Item Value Reference Range Comments TOTAL PROTEIN (BEAKER) (test 6.7 gm/dL 6.0-8.3 Specimen slightly hemolyzed dtni=649) ALBUMIN (BEAKER) (test 3.3 g/dL 3.5-5.0 Specimen slightly hemolyzed ktqa=2920) BILIRUBIN TOTAL (BEAKER) (test 0.4 mg/dL 0.2-1.2 Specimen slightly hemolyzed cdnb=741) BILIRUBIN DIRECT (BEAKER) (test 0.2 mg/dL 0.1-0.5 Specimen slightly hemolyzed onhs=616) ALKALINE PHOSPHATASE (BEAKER) 50 U/L 40-150 (test wimw=032) AST (SGOT) (BEAKER) (test 25 U/L 5-34 Specimen slightly hemolyzed jmzd=076) ALT (SGPT) (BEAKER) (test 19 U/L 6-55 Specimen slightly hemolyzed hhnw=332) LACTIC ACID, VENOUS, WHOLE [id number] 07:09:00 Test Item Value Reference Range Comments LACTATE BLOOD VENOUS (2) 0.9 mmol/L 0.5-2.2 Specimen slightly hemolyzed (BEAKER) (test wyzu=0874) Effective 11/22/2015: Units/Reference Range ChangeNew: 0.5-2.2 mmol/L Previous: 5 -20 mg/dLPROTHROMBIN [id number] 06:23:00 Test Item Value Reference Range Comments PROTIME (BEAKER) (test umoj=300) 15.1 seconds 11.7-14.7 INR (BEAKER) (test npjk=796) 1.2 <=5.9 RECOMMENDED COUMADIN/WARFARIN INR THERAPY RANGESSTANDARD DOSE: 2.0 - 3.0 Includes: PROPHYLAXIS forvenous thrombosis, systemic embolization; TREATMENT for venous thrombosis and/or pulmonary embolus.HIGH RISK: Target INR is 2.5-3.5 for patients with mechanical heart valves.HEMOGLOBIN AND [id number] 06 :17:00 Test Item Value Reference Range Comments HEMOGLOBIN (BEAKER) (test jfqv=118) 11.1 GM/DL 13.7-17.5 HEMATOCRIT (BEAKER) (test fcnt=356) 34.0 % 40.1-51.0 BLOOD [id number] 11:00:00 Test Item Value Reference Range Comments CULTURE (BEAKER) (test fazc=3776) No growth in 5 days BLOOD [id number] 00:00:00 Test Item Value Reference Range Comments CULTURE (BEAKER) (test efuk=3998) No growth in 5 days CBC W/PLT COUNT & AUTO [id number] 05:50:00 Test Item Value Reference Range Comments WHITE BLOOD CELL COUNT (BEAKER) (test ghbv=961) 6.0 K/ L 4.0-10.0 RED BLOOD CELL COUNT (BEAKER) (test xpde=548) 2.78 M/ L 4.20-5.80 HEMOGLOBIN (BEAKER) (test pzbd=544) 9.1 GM/DL 13.0-16.8 HEMATOCRIT (BEAKER) (test jpvg=610) 26.8 % 40.0-50.0 MEAN CORPUSCULAR VOLUME (BEAKER) (test sfrg=794) 96.2 fL 82.0-98.0 MEAN CORPUSCULAR HEMOGLOBIN (BEAKER) (test 32.7 pg 27.0-33.0 tmxm=556) MEAN CORPUSCULAR HEMOGLOBIN CONC (BEAKER) (test 34.0 GM/DL 32.0-36.0 ikdf=247) RED CELL DISTRIBUTION WIDTH (BEAKER) (test 13.8 % 10.3-14.2 rpsz=308) PLATELET COUNT (BEAKER) (test gmqt=446) 280 K/CU MM 150-430 MEAN PLATELET VOLUME (BEAKER) (test mebi=945) 7.5 fL 6.5-10.5 NUCLEATED RED BLOOD CELLS (BEAKER) (test 0 /100 WBC 0-0 chjq=930) NEUTROPHILS RELATIVE PERCENT (BEAKER) (test 58 % mqmk=515) LYMPHOCYTES RELATIVE PERCENT (BEAKER) (test 28 % rkri=728) MONOCYTES RELATIVE PERCENT (BEAKER) (test 9 % kppj=295) EOSINOPHILS RELATIVE PERCENT (BEAKER) (test 5 % oade=835) BASOPHILS RELATIVE PERCENT (BEAKER) (test 0 % cdln=816) NEUTROPHILS ABSOLUTE COUNT (BEAKER) (test 3.45 K/ L 1.80-8.00 oglu=178) LYMPHOCYTES ABSOLUTE COUNT (BEAKER) (test 1.68 K/ L 1.48-4.50 nobm=992) MONOCYTES ABSOLUTE COUNT (BEAKER) (test 0.54 K/ L 0.00-1.30 ecdc=925) EOSINOPHILS ABSOLUTE COUNT (BEAKER) (test 0.31 K/ L 0.00-0.50 fajo=391) BASOPHILS ABSOLUTE COUNT (BEAKER) (test 0.01 K/ L 0.00-0.20 cvlz=663) 0.00URINE [id number] 09:56:00 Test Item Value Reference Range Comments CULTURE (BEAKER) (test plfz=2759) No growth [id number] 05:00:00 Test Item Value Reference Range Comments MAGNESIUM (BEAKER) (test 1.8 mg/dL 1.6-2.6 Specimen slightly hemolyzed wqtj=843) BASIC METABOLIC [id number] 05:00:00 Test Item Value Reference Range Comments SODIUM (BEAKER) (test 132 meq/L 136-145 mfdo=937) POTASSIUM (BEAKER) (test 3.8 meq/L 3.5-5.1 Specimen slightly wcvp=132) hemolyzed CHLORIDE (BEAKER) (test 101 meq/L 98-107 scdq=884) CO2 (BEAKER) (test 23 meq/L 22-29 rifv=499) BLOOD UREA NITROGEN 7 mg/dL 7-21 (BEAKER) (test eqtm=200) CREATININE (BEAKER) (test 0.86 mg/dL 0.57-1.25 Specimen slightly lcmh=801) hemolyzed GLUCOSE RANDOM (BEAKER) 100 mg/dL 70-105 (test epzz=336) CALCIUM (BEAKER) (test 8.9 mg/dL 8.4-10.2 vwlf=801) EGFR (BEAKER) (test 90 mL/min/1.73 sq m ESTIMATED GFR IS NOT ifxy=5039) ACCURATE CREATININE CLEARANCE IN PREDICTING GLOMERULAR FILTRATION RATE. ESTIMATED GFR IS NOT APPLICABLE FOR DIALYSIS PATIENTS. HEPATIC FUNCTION [id number] 05:00:00 Test Item Value Reference Range Comments TOTAL PROTEIN (BEAKER) (test 6.7 gm/dL 6.0-8.3 Specimen slightly hemolyzed mqsn=840) ALBUMIN (BEAKER) (test 3.3 g/dL 3.5-5.0 Specimen slightly hemolyzed pzzq=1342) BILIRUBIN TOTAL (BEAKER) (test 0.3 mg/dL 0.2-1.2 Specimen slightly hemolyzed awli=380) BILIRUBIN DIRECT (BEAKER) (test 0.1 mg/dL 0.1-0.5 Specimen slightly hemolyzed gvvf=871) ALKALINE PHOSPHATASE (BEAKER) 57 U/L 40-150 (test utnn=851) AST (SGOT) (BEAKER) (test 23 U/L 5-34 Specimen slightly hemolyzed dvva=904) ALT (SGPT) (BEAKER) (test 14 U/L 6-55 Specimen slightly hemolyzed xvfd=288) CBC W/PLT COUNT & AUTO [id number] 04:46:00 Test Item Value Reference Range Comments WHITE BLOOD CELL COUNT (BEAKER) (test bmna=267) 7.3 K/ L 4.0-10.0 RED BLOOD CELL COUNT (BEAKER) (test hgfl=209) 2.77 M/ L 4.20-5.80 HEMOGLOBIN (BEAKER) (test qivx=579) 9.0 GM/DL 13.0-16.8 HEMATOCRIT (BEAKER) (test xzbd=095) 26.6 % 40.0-50.0 MEAN CORPUSCULAR VOLUME (BEAKER) (test gjoq=520) 95.9 fL 82.0-98.0 MEAN CORPUSCULAR HEMOGLOBIN (BEAKER) (test 32.6 pg 27.0-33.0 lgmo=060) MEAN CORPUSCULAR HEMOGLOBIN CONC (BEAKER) (test 34.0 GM/DL 32.0-36.0 irwo=947) RED CELL DISTRIBUTION WIDTH (BEAKER) (test 13.7 % 10.3-14.2 mhla=553) PLATELET COUNT (BEAKER) (test ommp=544) 273 K/CU MM 150-430 MEAN PLATELET VOLUME (BEAKER) (test bsmd=341) 8.0 fL 6.5-10.5 NUCLEATED RED BLOOD CELLS (BEAKER) (test 0 /100 WBC 0-0 flgb=388) NEUTROPHILS RELATIVE PERCENT (BEAKER) (test 64 % yiih=373) LYMPHOCYTES RELATIVE PERCENT (BEAKER) (test 22 % disn=903) MONOCYTES RELATIVE PERCENT (BEAKER) (test 9 % coaf=296) EOSINOPHILS RELATIVE PERCENT (BEAKER) (test 4 % yhkr=676) BASOPHILS RELATIVE PERCENT (BEAKER) (test 0 % llcr=207) NEUTROPHILS ABSOLUTE COUNT (BEAKER) (test 4.66 K/ L 1.80-8.00 wcji=436) LYMPHOCYTES ABSOLUTE COUNT (BEAKER) (test 1.59 K/ L 1.48-4.50 dkod=680) MONOCYTES ABSOLUTE COUNT (BEAKER) (test 0.68 K/ L 0.00-1.30 qoyw=214) EOSINOPHILS ABSOLUTE COUNT (BEAKER) (test 0.31 K/ L 0.00-0.50 yidz=451) BASOPHILS ABSOLUTE COUNT (BEAKER) (test 0.01 K/ L 0.00-0.20 sddy=779) 0.00PROTHROMBIN [id number] 04:45:00 Test Item Value Reference Range Comments PROTIME (BEAKER) (test gnau=593) 14.2 seconds 11.7-14.7 INR (BEAKER) (test xgtp=622) 1.1 <=5.9 RECOMMENDED COUMADIN/WARFARIN INR THERAPY RANGESSTANDARD DOSE: 2.0 - 3.0 Includes: PROPHYLAXIS forvenous thrombosis, systemic embolization; TREATMENT for venous thrombosis and/or pulmonary embolus.HIGH RISK: Target INR is 2.5-3.5 for patients with mechanical heart valves.[id number] 04:28:00 Test Item Value Reference Range Comments MAGNESIUM (BEAKER) (test bwcc=169) 1.7 mg/dL 1.6-2.6 BASIC METABOLIC [id number] 04:28:00 Test Item Value Reference Range Comments SODIUM (BEAKER) (test 134 meq/L 136-145 vsrf=683) POTASSIUM (BEAKER) (test 3.8 meq/L 3.5-5.1 jlpu=609) CHLORIDE (BEAKER) (test 104 meq/L 98-107 rxie=866) CO2 (BEAKER) (test 23 meq/L 22-29 rqte=923) BLOOD UREA NITROGEN 9 mg/dL 7-21 (BEAKER) (test uugb=638) CREATININE (BEAKER) (test 0.85 mg/dL 0.57-1.25 umvb=374) GLUCOSE RANDOM (BEAKER) 98 mg/dL 70-105 (test mcsb=889) CALCIUM (BEAKER) (test 8.9 mg/dL 8.4-10.2 qdhq=395) EGFR (BEAKER) (test 91 mL/min/1.73 sq m ESTIMATED GFR IS NOT nlcn=0990) ACCURATE CREATININE CLEARANCE IN PREDICTING GLOMERULAR FILTRATION RATE. ESTIMATED GFR IS NOT APPLICABLE FOR DIALYSIS PATIENTS. HEPATIC FUNCTION [id number] 04:28:00 Test Item Value Reference Range Comments TOTAL PROTEIN (BEAKER) (test mwyk=613) 6.4 gm/dL 6.0-8.3 ALBUMIN (BEAKER) (test lcfh=1935) 3.3 g/dL 3.5-5.0 BILIRUBIN TOTAL (BEAKER) (test zxon=120) 0.2 mg/dL 0.2-1.2 BILIRUBIN DIRECT (BEAKER) (test oszz=864) 0.2 mg/dL 0.1-0.5 ALKALINE PHOSPHATASE (BEAKER) (test liqv=053) 55 U/L 40-150 AST (SGOT) (BEAKER) (test qixl=762) 16 U/L 5-34 ALT (SGPT) (BEAKER) (test dkvn=850) 12 U/L 6-55 CBC W/PLT COUNT & AUTO [id number] 04:26:00 Test Item Value Reference Range Comments WHITE BLOOD CELL COUNT (BEAKER) (test bowk=160) 6.2 K/ L 4.0-10.0 RED BLOOD CELL COUNT (BEAKER) (test qtcc=202) 2.80 M/ L 4.20-5.80 HEMOGLOBIN (BEAKER) (test wdim=878) 9.4 GM/DL 13.0-16.8 HEMATOCRIT (BEAKER) (test mewe=714) 26.9 % 40.0-50.0 MEAN CORPUSCULAR VOLUME (BEAKER) (test njef=672) 96.2 fL 82.0-98.0 MEAN CORPUSCULAR HEMOGLOBIN (BEAKER) (test 33.5 pg 27.0-33.0 usuq=102) MEAN CORPUSCULAR HEMOGLOBIN CONC (BEAKER) (test 34.9 GM/DL 32.0-36.0 werb=200) RED CELL DISTRIBUTION WIDTH (BEAKER) (test 14.9 % 10.3-14.2 ylua=217) PLATELET COUNT (BEAKER) (test gbdk=626) 244 K/CU MM 150-430 MEAN PLATELET VOLUME (BEAKER) (test xhsd=050) 7.5 fL 6.5-10.5 NUCLEATED RED BLOOD CELLS (BEAKER) (test 0 /100 WBC 0-0 zzpk=634) NEUTROPHILS RELATIVE PERCENT (BEAKER) (test 56 % mpda=822) LYMPHOCYTES RELATIVE PERCENT (BEAKER) (test 27 % cuoq=348) MONOCYTES RELATIVE PERCENT (BEAKER) (test 10 % omkg=850) EOSINOPHILS RELATIVE PERCENT (BEAKER) (test 6 % axgg=481) BASOPHILS RELATIVE PERCENT (BEAKER) (test 1 % glyk=939) NEUTROPHILS ABSOLUTE COUNT (BEAKER) (test 3.48 K/ L 1.80-8.00 obek=998) LYMPHOCYTES ABSOLUTE COUNT (BEAKER) (test 1.68 K/ L 1.48-4.50 mzyh=046) MONOCYTES ABSOLUTE COUNT (BEAKER) (test 0.60 K/ L 0.00-1.30 vpdn=744) EOSINOPHILS ABSOLUTE COUNT (BEAKER) (test 0.37 K/ L 0.00-0.50 aqrd=443) BASOPHILS ABSOLUTE COUNT (BEAKER) (test 0.05 K/ L 0.00-0.20 kanh=379) 0.00PROTHROMBIN [id number] 04:19:00 Test Item Value Reference Range Comments PROTIME (BEAKER) (test tiff=611) 15.2 seconds 11.7-14.7 INR (BEAKER) (test ztyt=726) 1.2 <=5.9 RECOMMENDED COUMADIN/WARFARIN INR THERAPY RANGESSTANDARD DOSE: 2.0 - 3.0 Includes: PROPHYLAXIS forvenous thrombosis, systemic embolization; TREATMENT for venous thrombosis and/or pulmonary embolus.HIGH RISK: Target INR is 2.5-3.5 for patients with mechanical heart valves.URINALYSIS W/ [id number] 16 :59:00 Test Item Value Reference Range Comments COLOR (BEAKER) (test yleb=306) Light Yellow CLARITY (BEAKER) (test luqp=223) Clear SPECIFIC GRAVITY UA (BEAKER) (test dcej=948) 1.005 1.001-1.035 PH UA (BEAKER) (test iblu=615) 6.5 5.0-8.0 PROTEIN UA (BEAKER) (test wdcq=504) Negative Negative GLUCOSE UA (BEAKER) (test sswu=514) Negative Negative KETONES UA (BEAKER) (test fruu=899) Negative Negative BILIRUBIN UA (BEAKER) (test eelw=938) Negative Negative BLOOD UA (BEAKER) (test pmrj=264) Negative Negative NITRITE UA (BEAKER) (test leon=142) Negative Negative LEUKOCYTE ESTERASE UA (BEAKER) (test tgwj=786) Negative Negative UROBILINOGEN UA (BEAKER) (test qrfl=804) 0.2 mg/dL 0.2-1.0 RBC UA (BEAKER) (test oani=813) < /HPF WBC UA (BEAKER) (test tjtm=475) 1 /HPF SOURCE(BEAKER) (test xogw=6497) Urine, Voided RAPID DRUG SCREEN, [id number] 16:59:00 Test Item Value Reference Range Comments BARBITURATE URINE (BEAKER) (test mvvp=006) Negative Negative BENZODIAZEPINE SCREEN URINE (BEAKER) (test Positive Negative kxhu=145) COCAINE (METAB.) SCREEN (BEAKER) (test iaox=2808) Negative Negative METHADONE SCREEN (BEAKER) (test fzdr=3786) Negative Negative OPIATE SCREEN URINE (BEAKER) (test plqg=557) Negative Negative CANNABINOID SCREEN URINE (BEAKER) (test yfxh=099) Negative Negative AMPH/METHAMPH SCREEN (BEAKER) (test rcwb=4743) Negative Negative PHENCYCLIDINE SCREEN URINE (BEAKER) (test hxtn=435) Negative Negative OXYCODONE SCREEN URINE (BEAKER) (test tvxg=2910) Negative Negative DRUG CUTOFF CONC.Cocaine 300 ng/mL Cannabinoid 50 ng/mL Benzodiazepine 200 ng/mLBarbiturate 200 ng/ mLPhencyclidine 25 ng/mLOpiate 300 ng/mLMethadone 300 ng/mLAmphetamine/ 1000 ng/mL MethamphetamineOxycodone 300 ng/mLThis assay provides an unconfirmed qualitative test result for the clinical management of patients in emergency situations. Chain of custody not maintained. Some hgqj-sqq-zdskjjw medications, as well as adulterants, may cause inaccurate results. Clinical correlation should be applied. A more comprehensive drug screen or confirmation of a detected drug may be performed upon request.HEMOGLOBIN AND [id number] 16:42:00 Test Item Value Reference Range Comments HEMOGLOBIN (BEAKER) (test pzvz=397) 9.7 GM/DL 13.0-16.8 HEMATOCRIT (BEAKER) (test skkz=716) 28.9 % 40.0-50.0 POCT-LACTIC ACID, [id number] 10:41:00 Test Item Value Reference Range Comments POC-LACTIC ACID, ARTERIAL 0.5 mmol/L 0.4-1.3 TESTED AT [address] (BEAKER) (test jmhi=3682) [place] [address] POCT-BLOOD GASES, [id number] 10:35:00 Test Item Value Reference Range Comments TEMP, CELSIUS-POC (BEAKER) 37.0 (test ilxl=9311) FIO2-POC (BEAKER) (test TESTED AT [address] bmfv=5931) [place] [address] PH, ARTERIAL-POC (BEAKER) 7.387 7.350-7.450 (test rujx=1990) PCO2, ARTERIAL-POC (BEAKER) 41.4 mm Hg 35.0-45.0 (test exqh=8185) PO2, ARTERIAL-POC (BEAKER) 74.0 mm Hg 80.0-90.0 (test nizw=8475) SO2, ARTERIAL-POC (BEAKER) 94.0 % 96.0-97.0 (test zsyk=3201) HCO3, ARTERIAL-POC (BEAKER) 24.9 meq/L 21.0-29.0 (test fayp=1519) BASE EXCESS, ARTERIAL-POC 0.0 meq/L -2.0-3.0 (BEAKER) (test lzhb=9724) [id number] 10:35:00 Test Item Value Reference Range Comments POC-SODIUM (BEAKER) (test 136 meq/L 135-148 TESTED AT [address] heci=1676) [place] [address] [id number] 10:35:00 Test Item Value Reference Range Comments POC-POTASSIUM (BEAKER) (test 3.9 meq/L 3.6-5.5 TESTED AT [address] jqjb=5482) [place] [address] [id number] 10:35:00 Test Item Value Reference Range Comments POC-GLUCOSE (BEAKER) (test 140 mg/dL 70-110 TESTED AT [address] jgsy=4771) [place] [address] POCT-CALCIUM [id number] 10:35:00 Test Item Value Reference Range Comments POC-CALCIUM IONIZED (BEAKER) 1.34 mmol/L 1.12-1.27 TESTED AT [address] (test eojt=9888) [place] [address] [id number] 10:35:00 Test Item Value Reference Range Comments POC-HEMATOCRIT (BEAKER) (test 27 % 40-50 TESTED AT [address] yvky=9726) [place] [address] [id number] 10:35:00 Test Item Value Reference Range Comments POC-HEMOGLOBIN (BEAKER) 9.2 g/dL 13.0-16.8 TESTED AT [address] (test hqlf=5674) [place] [address] CBC (HEMOGRAM ONLY)2017-01-18 09:53:00 Test Item Value Reference Range Comments WHITE BLOOD CELL COUNT (BEAKER) (test oiku=755) 10.6 K/ L 4.0-10.0 RED BLOOD CELL COUNT (BEAKER) (test rhwh=397) 2.99 M/ L 4.20-5.80 HEMOGLOBIN (BEAKER) (test gsrc=961) 9.9 GM/DL 13.0-16.8 HEMATOCRIT (BEAKER) (test gijx=979) 29.1 % 40.0-50.0 MEAN CORPUSCULAR VOLUME (BEAKER) (test cjci=173) 97.5 fL 82.0-98.0 MEAN CORPUSCULAR HEMOGLOBIN (BEAKER) (test 33.2 pg 27.0-33.0 arvt=546) MEAN CORPUSCULAR HEMOGLOBIN CONC (BEAKER) (test 34.1 GM/DL 32.0-36.0 rhke=431) RED CELL DISTRIBUTION WIDTH (BEAKER) (test 13.8 % 10.3-14.2 rkuw=648) PLATELET COUNT (BEAKER) (test depc=820) 282 K/CU MM 150-430 MEAN PLATELET VOLUME (BEAKER) (test yibk=791) 8.0 fL 6.5-10.5 NUCLEATED RED BLOOD CELLS (BEAKER) (test 0 /100 WBC 0-0 elrc=992) [id number] 08:25:00 Test Item Value Reference Range Comments AMMONIA (BEAKER) (test 75 mol/L 18-72 Specimen moderately hemolyzed jnqu=447) [id number] 08:21:00 Test Item Value Reference Range Comments MAGNESIUM (BEAKER) (test qsrp=208) 1.7 mg/dL 1.6-2.6 BASIC METABOLIC [id number] 08:21:00 Test Item Value Reference Range Comments SODIUM (BEAKER) (test 134 meq/L 136-145 xhky=348) POTASSIUM (BEAKER) (test 4.1 meq/L 3.5-5.1 eamq=191) CHLORIDE (BEAKER) (test 104 meq/L 98-107 fokk=554) CO2 (BEAKER) (test 23 meq/L 22-29 whtn=435) BLOOD UREA NITROGEN 15 mg/dL 7-21 (BEAKER) (test scbd=634) CREATININE (BEAKER) (test 0.92 mg/dL 0.57-1.25 ahcw=454) GLUCOSE RANDOM (BEAKER) 96 mg/dL 70-105 (test yzio=758) CALCIUM (BEAKER) (test 9.2 mg/dL 8.4-10.2 ukpa=729) EGFR (BEAKER) (test 83 mL/min/1.73 sq m ESTIMATED GFR IS NOT alse=5257) ACCURATE CREATININE CLEARANCE IN PREDICTING GLOMERULAR FILTRATION RATE. ESTIMATED GFR IS NOT APPLICABLE FOR DIALYSIS PATIENTS. HEPATIC FUNCTION [id number] 08:21:00 Test Item Value Reference Range Comments TOTAL PROTEIN (BEAKER) (test nayx=872) 6.5 gm/dL 6.0-8.3 ALBUMIN (BEAKER) (test ckln=7765) 3.4 g/dL 3.5-5.0 BILIRUBIN TOTAL (BEAKER) (test ezrv=598) 0.4 mg/dL 0.2-1.2 BILIRUBIN DIRECT (BEAKER) (test rtdw=095) 0.2 mg/dL 0.1-0.5 ALKALINE PHOSPHATASE (BEAKER) (test dnko=580) 57 U/L 40-150 AST (SGOT) (BEAKER) (test paio=360) 20 U/L 5-34 ALT (SGPT) (BEAKER) (test mxrj=398) 14 U/L 6-55 LACTIC ACID, VENOUS, WHOLE [id number] 08:13:00 Test Item Value Reference Range Comments LACTATE BLOOD VENOUS (2) 1.2 mmol/L 0.5-2.2 Specimen moderately hemolyzed (BEAKER) (test mjxx=1967) Effective 11/22/2015: Units/Reference Range ChangeNew: 0.5-2.2 mmol/L Previous: 5 -20 mg/dLPT/[id number] 07:58:00 Test Item Value Reference Range Comments PROTIME (BEAKER) (test akdg=374) 14.5 seconds 11.7-14.7 INR (BEAKER) (test argp=955) 1.1 <=5.9 PARTIAL THROMBOPLASTIN TIME (BEAKER) (test 26.9 seconds 22.5-36.0 sgul=621) RECOMMENDED COUMADIN/WARFARIN INR THERAPY RANGESSTANDARD DOSE: 2.0 - 3.0 Includes: PROPHYLAXIS forvenous thrombosis, systemic embolization; TREATMENT for venous thrombosis and/or pulmonary embolus.HIGH RISK: Target INR is 2.5-3.5 for patients with mechanical heart valves.[id number] 19:24:00 Test Item Value Reference Range Comments MAGNESIUM (BEAKER) (test 1.8 mg/dL 1.6-2.6 Specimen slightly hemolyzed ovsd=606) COMPREHENSIVE METABOLIC [id number] 19:24:00 Test Item Value Reference Range Comments TOTAL PROTEIN (BEAKER) 6.8 gm/dL 6.0-8.3 Specimen slightly (test ldnz=100) hemolyzed ALBUMIN (BEAKER) (test 3.4 g/dL 3.5-5.0 Specimen slightly iinw=4864) hemolyzed ALKALINE PHOSPHATASE 59 U/L 40-150 (BEAKER) (test mxae=421) BILIRUBIN TOTAL (BEAKER) 0.3 mg/dL 0.2-1.2 Specimen slightly (test axse=377) hemolyzed SODIUM (BEAKER) (test 134 meq/L 136-145 zqgu=497) POTASSIUM (BEAKER) (test 4.5 meq/L 3.5-5.1 Specimen slightly dmso=536) hemolyzed CHLORIDE (BEAKER) (test 106 meq/L 98-107 elkz=463) CO2 (BEAKER) (test 20 meq/L 22-29 hynq=001) BLOOD UREA NITROGEN 19 mg/dL 7-21 (BEAKER) (test ydya=907) CREATININE (BEAKER) (test 0.93 mg/dL 0.57-1.25 Specimen slightly ybrx=012) hemolyzed GLUCOSE RANDOM (BEAKER) 125 mg/dL 70-105 (test vofi=884) CALCIUM (BEAKER) (test 9.1 mg/dL 8.4-10.2 cafi=777) AST (SGOT) (BEAKER) (test 22 U/L 5-34 Specimen slightly uqga=021) hemolyzed ALT (SGPT) (BEAKER) (test 17 U/L 6-55 Specimen slightly bvvv=441) hemolyzed EGFR (BEAKER) (test 82 mL/min/1.73 sq m ESTIMATED GFR IS NOT iclm=8242) ACCURATE CREATININE CLEARANCE IN PREDICTING GLOMERULAR FILTRATION RATE. ESTIMATED GFR IS NOT APPLICABLE FOR DIALYSIS PATIENTS.
[2017-12-24] MEDS ORDERED: PANTOPRAZOLE INJ 80 MG in NA CHLORIDE 0.9% 250 ML IV ONE (11:00)
[2017-12-24] MEDS ORDERED: ONDANSETRON 4 MG/2 ML VIAL ONE (11:02)
[2017-12-24] MEDS ORDERED: PANTOPRAZOLE 40 MG INJ ONE (11:02)
[2017-12-24 11:04] LABS: Absolute Lymphocytes (CBC) 0.9 K/uL (0.7-4.9); Absolute Monocytes 1.4 K/uL (0.1-1.3); Absolute Neutrophil 8.5 K/uL (1.8-8.0); Basophils % 0.2 % (0-1.3); Hematocrit 22.3 % (39.6-49.0); Lymphocytes % 8.5 % (15.3-44.8); MCH 21.3 pg (27.0-35.0); MCV 69.9 fL (80-100); Monocytes % 13.2 % (3.3-12.3); RBC Red Blood Cell Count 3.19 M/uL (4.33-5.43)
[2017-12-24 11:10] LABS: Potassium 3.6 mEq/L (3.6-5.0)
[2017-12-24 11:17] LABS: Albumin 3.9 g/dL (3.2-5.5); Bilirubin Direct 0.1 mg/dL (0-0.2); Bilirubin Total 0.7 mg/dL (0.3-1.2); Protein, Total 7.6 g/dL (6.0-8.3)
[2017-12-24] MEDS ORDERED: PROMETHAZINE 25 MG/ML VIAL ONE (11:33)
--- NOTE | 2017-12-24 12:03 | ER ---
Nurse's Notes [facility] Name: Errol Dior Age: 62 yrs Sex: Male : 1955 Arrival Date: 12/24/2017 Time: 10:14 Bed 2 Private MD: Diagnosis: Gastrointestinal hemorrhage, unspecified-upper GI;Anemia Presentation: 12/24 10:15 Presenting complaint: EMS states: vomiting coffee ground emesis and abd pain x 4 days ss and chronic back pain from previous fracture. Transition of care: patient was received from another setting of care (long-term care facility), [facility]. Onset of symptoms was December 21, 2017. Risk Assessment: Do you want to hurt yourself or someone else? Patient reports no desire to harm self or others. Care prior to arrival: SEE EMS REPORT. 10:15 Method Of Arrival: EMS: [facility] ss 10:15 Acuity: JULIETA 3 ss 13:14 Initial Sepsis Screen: Does the patient meet any 2 criteria? No. Patient's initial jl7 sepsis screen is negative. Does the patient have a suspected source of infection? No. Patient's initial sepsis screen is negative. Historical: - Allergies: 10:29 No Known Allergies; ss - Home Meds: 10:29 amlodipine 10 mg tab 1 tab once daily [Active]; Coreg 3.125 mg Oral tab 1 tab 2 times ss per day [Active]; folic acid 1 mg Oral tab 1 tab once daily [Active]; Keppra 750 mg Oral tab 2 tabs 2 times per day [Active]; lactulose 20 gram/30 mL Oral soln 30 mL twice a day [Active]; Lasix 20 mg Oral tab 1 tab once daily [Active]; pantoprazole 40 mg Oral TbEC 1 tab once daily [Active]; tramadol 50 mg Oral tab 1 tab every 6 hours [Active]; thiamine HCl (vitamin B1) 50 mg Oral tab [Active]; pyridoxine (vitamin B6) 100 mg Oral tab daily [Active]; spironolactone 25 mg Oral tab 1 tab once daily [Active]; rifaximin Oral 1 tab 2 times per day [Active]; - PMHx: 10:29 Alcoholism; Cirrhosis; Back pain; CVA; Depression; falls, history of; MUSCLE WEAKNESS; ss Hypertension; GERD; generalized weakness; Rheumatoid Arthritis; Seizures; GI hemorrhage; anogenital warts; cognitive communication deficit; - Ebola Screening: : Patient denies exposure to infectious person Patient denies travel to an Ebola-affected area in the 21 days before illness onset. - Social history:: Smoking status: unknown. Screenin:15 Abuse screen: Denies threats or abuse. Denies injuries from another. Nutritional jl7 screening: Has had N/V for 3 or more days Intervention for positive screen: ED Physician notified. Tuberculosis screening: No symptoms or risk factors identified. Fall Risk Secondary diagnosis (15 points) seizures, CVA, IV access (20 points). Ambulatory Aid- None/Bed Rest/Nurse Assist (0 pts). Gait- Normal/Bed Rest/Wheelchair (0 pts) Mental Status- Oriented to own ability (0 pts). Total Molina Fall Scale indicates Low Risk Score (25-44 pts). Fall prevention measures have been instituted. Side Rails Up X 2 Placed close to Nursing Station Frequent Obs/Assesments occuring As available Patient and Family Educated on Fall Prevention Program and strategies. Assessment: 10:30 General: Appears uncomfortable, Behavior is calm. Pain: Complains of pain in abdomen jl7 Pain does not radiate. Pain currently is 10 out of 10 on a pain scale. Pain began 2-3 days ago. Is continuous. Neuro: Level of Consciousness is awake, alert, obeys commands, Oriented to person, place, situation. Cardiovascular: Heart tones S1 S2 present Patient's skin is warm and dry. Respiratory: Airway is patent Respiratory effort is even, unlabored, Breath sounds are clear bilaterally. GI: Abdomen is flat, non-distended, Bowel sounds present X 4 quads. Reports nausea, vomiting. : No signs and/or symptoms were reported regarding the genitourinary system. EENT: No signs and/or symptoms were reported regarding the EENT system. Derm: Skin is pink, warm \T\ dry. Musculoskeletal: No signs and/or symptoms reported regarding the musculoskeletal system. 11:30 Reassessment: Pt c/o increased nausea, provider notified see MAR for orders. jl7 12:00 Reassessment: Pt c/o continued abdominal pain, provider notified see MAR for orders. jl7 13:00 Reassessment: Patient and/or family updated on plan of care and expected duration. Pain hb level reassessed. Patient is alert, oriented x 3, equal unlabored respirations, skin warm/dry/pink. Vital Signs: 10:20 BP 156 / 100; Pulse 102; Resp 15; Pulse Ox 98% on R/A; hb 11:15 BP 164 / 112; Pulse 87; Resp 16 S; Temp 98.6(A); Pulse Ox 100% ; Pain 10/10; jl7 12:09 BP 161 / 114; Pulse 101; Resp 20 S; Temp 99.7(R); Pulse Ox 100% on R/A; jl7 13:04 BP 135 / 94; Pulse 84; Resp 16; Pulse Ox 99% ; jl7 ED Course: 10:14 Patient arrived in ED. ss 10:14 Lv Charles PA is PHCP. jr8 10:14 Krish Mcarthur MD is Attending Physician. jr8 10:19 Triage completed. ss 10:20 Missed attempt(s): 22 gauge in left forearm. Bleeding controlled, band aid applied, jl7 catheter tip intact. 10:24 Arm band placed on right wrist. hb 10:24 Missed attempt(s): 22 gauge in left forearm. Bleeding controlled, band aid applied, hb catheter tip intact. 10:40 Missed attempt(s): 22 gauge in right Bleeding controlled, band aid applied, catheter ss tip intact. 10:45 Inserted saline lock: 22 gauge in right antecubital area, using aseptic technique. ss Blood collected. 10:49 Magdiel Ramirez, [place] is Primary Nurse. jl7 11:15 Patient has correct armband on for positive identification. Placed in gown. Bed in low jl7 position. Call light in reach. Side rails up X2. hall monitor on. Pulse ox on. NIBP on. Warm blanket given. 11:30 Notified Nurse Practitioner and/or Physician Pattern Chain Builder of a critical lab result(s), Hgb hb 6.8. 11:50 Inserted saline lock: 18 gauge in right EJ, using aseptic technique. ,using aseptic jl7 technique. Inserted by REUBEN Carr. 12:01 Zia Cain MD is Hospitalizing Provider. jr8 13:10 No provider procedures requiring assistance completed. Patient admitted, IV remains in hb place. Administered Medications: 11:00 Drug: Zofran 4 mg Route: IVP; Site: right antecubital; jl7 11:30 Follow up: Response: No adverse reaction; Nausea unchanged jl7 11:10 Drug: ProTONIX 40 mg Route: IVP; Site: right antecubital; jl7 13:21 Follow up: Response: No adverse reaction jl7 11:30 Drug: ProTONIX 8 mg/hr Route: IV; Rate: 25 ml/hr; Site: right antecubital; jl7 13:23 Follow up: IV Status: Infusion continued upon admission jl7 11:39 Drug: Phenergan 12.5 mg Route: IVP; Site: right antecubital; jl7 12:00 Follow up: Response: Nausea is decreased jl7 12:51 Drug: fentaNYL (PF) 25 mcg Route: IVP; Site: right jugular; jl7 13:00 Follow up: Response: No adverse reaction; Pain is decreased jl7 Outcome: 12:03 Decision to Hospitalize by Provider. jr8 13:10 Admitted to Med/surg accompanied by tech, via stretcher, room 215, with chart, Report hb called to [place] Quintana 13:10 Condition: stable 13:10 Discharge instructions given to patient, Instructed on the need for admit, Demonstrated understanding of instructions. 14:16 Patient left the ED. Signatures: Torrie Talley RN RN Lv Charles PA PA jr8 Jyoti De RN RN Magdiel Ramirez RN RN jl7
--- NOTE | 2017-12-24 12:03 | EDPHYS ---
Physician Documentation [facility] Name: Errol Dior Age: 62 yrs Sex: Male : 1955 Arrival Date: 12/24/2017 Time: 10:14 Bed 2 Private MD: ED Physician Krish Mcarthur HPI: 12/24 10:17 This 62 yrs old Male presents to ER via Unassigned with complaints of vomting jr8 coffee ground emesis. 10:17 The patient presents with abdominal pain in the epigastric area. Onset: The jr8 symptoms/episode began/occurred acutely, 3 day(s) ago. The symptoms do not radiate. Associated signs and symptoms: Pertinent positives: nausea and vomiting. The symptoms are described as sharp. Modifying factors: The symptoms are alleviated by nothing, the symptoms are aggravated by vomiting. Severity of pain: At its worst the pain was moderate in the emergency department the pain is unchanged. The patient has experienced similar episodes in the past, a few times. The patient has not recently seen a physician. history of gastritis, cirrhosis of liver, and varices. Came in with three days of coffee ground emesis per fdc. Did not want to come in on Friday when it started. Stated that pain got to severe now . Historical: - Allergies: 10:29 No Known Allergies; ss - Home Meds: 10:29 amlodipine 10 mg tab 1 tab once daily [Active]; Coreg 3.125 mg Oral tab 1 tab 2 times ss per day [Active]; folic acid 1 mg Oral tab 1 tab once daily [Active]; Keppra 750 mg Oral tab 2 tabs 2 times per day [Active]; lactulose 20 gram/30 mL Oral soln 30 mL twice a day [Active]; Lasix 20 mg Oral tab 1 tab once daily [Active]; pantoprazole 40 mg Oral TbEC 1 tab once daily [Active]; tramadol 50 mg Oral tab 1 tab every 6 hours [Active]; thiamine HCl (vitamin B1) 50 mg Oral tab [Active]; pyridoxine (vitamin B6) 100 mg Oral tab daily [Active]; spironolactone 25 mg Oral tab 1 tab once daily [Active]; rifaximin Oral 1 tab 2 times per day [Active]; - PMHx: 10:29 Alcoholism; Cirrhosis; Back pain; CVA; Depression; falls, history of; MUSCLE WEAKNESS; ss Hypertension; GERD; generalized weakness; Rheumatoid Arthritis; Seizures; GI hemorrhage; anogenital warts; cognitive communication deficit; - Ebola Screening: : Patient denies exposure to infectious person Patient denies travel to an Ebola-affected area in the 21 days before illness onset. - Social history:: Smoking status: unknown. ROS: 10:17 Eyes: Negative for injury, pain, redness, and discharge, ENT: Negative for injury, jr8 pain, and discharge, Neck: Negative for injury, pain, and swelling, Cardiovascular: Negative for chest pain, palpitations, and edema, Respiratory: Negative for shortness of breath, cough, wheezing, and pleuritic chest pain, Back: Negative for injury and pain, MS/Extremity: Negative for injury and deformity, Skin: Negative for injury, rash, and discoloration, Neuro: Negative for headache, weakness, numbness, tingling, and seizure. 10:17 Abdomen/GI: Positive for abdominal pain, nausea and vomiting, Negative for diarrhea, constipation, abdominal distension, hematemesis, black/tarry stool, rectal bleeding, bowel incontinence, flatulence. Exam: 10:17 ENT: Nares patent. No nasal discharge, no septal abnormalities noted. Tympanic jr8 membranes are normal and external auditory canals are clear. Oropharynx with no redness, swelling, or masses, exudates, or evidence of obstruction, uvula midline. Mucous membranes moist. Cardiovascular: Regular rate and rhythm with a normal S1 and S2. No gallops, murmurs, or rubs. Normal PMI, no JVD. No pulse deficits. Respiratory: Lungs have equal breath sounds bilaterally, clear to auscultation and percussion. No rales, rhonchi or wheezes noted. No increased work of breathing, no retractions or nasal flaring. Back: No CVA tenderness. Pain to low back region. History of fractured back with chronic pain Skin: Warm, dry with normal turgor. Normal color with no rashes, no lesions, and no evidence of cellulitis. MS/ Extremity: Pulses equal, no cyanosis. Neurovascular intact. Full, normal range of motion. Neuro: Awake and alert, GCS 15, oriented to person, place, time, and situation. Cranial nerves II-XII grossly intact. Motor strength 5/5 in all extremities. Sensory grossly intact. Cerebellar exam normal. Normal gait. 10:17 Abdomen/GI: Inspection: abdomen appears normal, Bowel sounds: active, all quadrants, Palpation: soft, in all quadrants, moderate abdominal tenderness, in the epigastric area, mass, is not appreciated, rebound tenderness, is not appreciated, voluntary guarding, is elicited in the epigastric area, involuntary guarding, is not appreciated, no appreciated organomegaly, Indicators: McBurney's point is not tender, Gomez's sign is negative, Rovsing's sign is negative, Liver: tenderness, is not appreciated. Vital Signs: 10:20 BP 156 / 100; Pulse 102; Resp 15; Pulse Ox 98% on R/A; hb 11:15 BP 164 / 112; Pulse 87; Resp 16 S; Temp 98.6(A); Pulse Ox 100% ; Pain 10/10; jl7 12:09 BP 161 / 114; Pulse 101; Resp 20 S; Temp 99.7(R); Pulse Ox 100% on R/A; jl7 13:04 BP 135 / 94; Pulse 84; Resp 16; Pulse Ox 99% ; jl7 MDM: 10:14 Patient medically screened. jr8 11:59 Data reviewed: vital signs, nurses notes, lab test result(s), and as a result, I will [facility] admit patient. Data interpreted: Pulse oximetry: on room air is 100 %. Interpretation: normal. Counseling: I had a detailed discussion with the patient and/or guardian regarding: the historical points, exam findings, and any diagnostic results supporting the discharge/admit diagnosis, lab results, the need for further work-up and treatment in the hospital. ED course: Left messages with both Dr. Cain and Dr. Ward to call back for consult and admission . 12:21 ED course: Dr. Cain called back and will see patient. Still waiting on [facility] to call [facility] back . 12/24 10:15 Order name: Basic Metabolic Panel; Complete Time: 11:12/24 10:15 Order name: CBC with Diff; Complete Time: 13:22 12/24 10:15 Order name: Creatinine for Radiology; Complete Time: 11:8 12/24 10:15 Order name: Hepatic Function; Complete Time: 11:8 12/24 10:15 Order name: Lipase; Complete Time: 11:12/24 10:15 Order name: TS 8 12/24 11:29 Order name: CBC Smear Scan; Complete Time: 13:22 [facility] 12/24 11:55 Order name: Packed RBC Leukored -1 [facility] 12/24 11:57 Order name: CONS Physician Consult [facility] 12/24 10:15 Order name: IV Saline Lock; Complete Time: 10:45 jr8 12/24 10:15 Order name: Labs collected and sent; Complete Time: 10:45 jr8 Administered Medications: 11:00 Drug: Zofran 4 mg Route: IVP; Site: right antecubital; jl7 11:30 Follow up: Response: No adverse reaction; Nausea unchanged jl7 11:10 Drug: ProTONIX 40 mg Route: IVP; Site: right antecubital; jl7 13:21 Follow up: Response: No adverse reaction jl7 11:30 Drug: ProTONIX 8 mg/hr Route: IV; Rate: 25 ml/hr; Site: right antecubital; jl7 13:23 Follow up: IV Status: Infusion continued upon admission jl7 11:39 Drug: Phenergan 12.5 mg Route: IVP; Site: right antecubital; jl7 12:00 Follow up: Response: Nausea is decreased jl7 12:51 Drug: fentaNYL (PF) 25 mcg Route: IVP; Site: right jugular; jl7 13:00 Follow up: Response: No adverse reaction; Pain is decreased jl7 Disposition: 16:20 Co-signature as Attending Physician, Krish Mcarthur MD. rn Disposition: 12/24/17 12:03 Hospitalization ordered by Zia Cain for Observation. Preliminary diagnosis are Gastrointestinal hemorrhage, unspecified - upper GI, Anemia. - Bed requested for Telemetry/MedSurg (Inpatient). - Status is Observation. hb - Condition is Fair. - Problem is an acute exacerbation. - Symptoms are unchanged. UTI on Admission? No Critical care time excluding procedures: 12:59 Critical care time: Bedside Care: 10 minutes, Consultation: 10 minutes, Lab review and jr8 interpretation : 20 minutes. Total time: 40 minutes Signatures: Dis[facility] Yolande Mckeon RN RN dw Nieto, Roman, MD MD rn Smirch, Shelby, RN RN ss Roszak, Josh, PA PA jr8 Jyoti De RN RN hb Magdiel Ramirez RN RN jl7 Corrections: (The following items were deleted from the chart) 12:21 12:03 Hospitalization Ordered by Zia Cain MD for Inpatient Admission. Preliminary jr8 diagnosis is Gastrointestinal hemorrhage, unspecified - upper GI; Anemia. Bed requested for Telemetry/MedSurg (Inpatient). Status is Inpatient Admission. Condition is Fair. Problem is an acute exacerbation. Symptoms are unchanged. UTI on Admission? No. jr8 12:59 12:21 12/24/2017 12:03 Hospitalization Ordered by Zia Cain MD for Observation. dw Preliminary diagnosis is Gastrointestinal hemorrhage, unspecified - upper GI; Anemia. Bed requested for Telemetry/MedSurg (Inpatient). Status is Observation. Condition is Fair. Problem is an acute exacerbation. Symptoms are unchanged. UTI on Admission? No. jr8 14:16 12:59 12/24/2017 12:03 Hospitalization Ordered by Zia Cain MD for Observation. hb Preliminary diagnosis is Gastrointestinal hemorrhage, unspecified - upper GI; Anemia. Bed requested for Telemetry/MedSurg (Inpatient). Status is Observation. Condition is Fair. Problem is an acute exacerbation. Symptoms are unchanged. UTI on Admission? No. dw
[2017-12-24] MEDS ORDERED: ONDANSETRON 4 MG/2 ML VIAL IV PRN (12:22)
[2017-12-24] MEDS ORDERED: HYDROCORTISONE SUC 100 MG INJ IV ONE (12:22)
[2017-12-24] MEDS ORDERED: DIPHENHYDRAMINE 50 MG/ML VIAL IV ONE (12:22)
[2017-12-24] MEDS ORDERED: FENTANYL CITR 100 MCG/2 ML ONE (12:38)
[2017-12-24] MEDS ORDERED: NA CHLORIDE 0.9% 250 ML IV SCH (13:00)
[2017-12-24 13:12] LABS: Anisocytosis 2+; Blood Morphology Comment NOTED (NOT SEEN); Hypochromasia 2+; Platelet Estimate ADEQ; Poikilocytosis 1+; Urine White Blood Cell Casts OK
[2017-12-24] MEDS: NA CHLORIDE 0.9% 1,000 ML IV SCH ×2 (14:20→20:04)
[2017-12-24] MEDS: ACETAMINOPHEN 500 MG TAB PO PRN (20:04)
[2017-12-24] MEDS ORDERED: NA CHLORIDE 0.9% 250 ML ONE (23:48)
[2017-12-25 04:54] LABS: Absolute Lymphocytes (CBC) 1.9 K/uL (0.7-4.9); Absolute Monocytes 1.4 K/uL (0.1-1.3); Basophils % 0.3 % (0-1.3); Hematocrit 23.5 % (39.6-49.0); Lymphocytes % 25.7 % (15.3-44.8); MCH 21.9 pg (27.0-35.0); MCV 72.7 fL (80-100); MPV 9.3 fL (7.6-11.3); Monocytes % 19.3 % (3.3-12.3); RBC Red Blood Cell Count 3.23 M/uL (4.33-5.43)
[2017-12-25 04:56] LABS: Potassium 3.4 mEq/L (3.6-5.0)
[2017-12-25 06:36] LABS: Hematocrit 24.9 % (39.6-49.0)
--- NOTE | 2017-12-25 11:08 | P.HP ---
Certification for Inpatient Patient admitted to: Inpatient With expected LOS: >2 Midnights Patient will require the following post-hospital care: None Practitioner: I am a practitioner with admitting privileges, knowledge of patient current condition, hospital course, and medical plan of care. Services: Services provided to patient in accordance with Admission requirements found in Title 42 Section 412.3 of the Code of Federal Regulations Patient History Date of Service: 12/25/17 Primary Care Provider: Ant Reason for admission: Upper GI bleed. History of Present Illness: Patient from [facility]. He has been having coffee ground emesis for the past week. However refusing to be sent to the ER. He had one yesterday and agreed. Patient has a history of seizures, and alcoholic cirrhosis. He has recieved 1 units of PRBC. He denies any coffee ground emesis today. Refuses his 2nd transfusion by Dr. Schulz. He has multiple EGD in the past. Mostly has esophagitis. The patient is usually a difficulty patient. Refuses to take his medications in the detention. Refuses procedures and follow up appointments Allergies No Known Allergies Allergy (Verified 02/07/17 13:55) Home medications list reviewed: Yes Home Medications: Amlodipine [Norvasc*] 10 mg PO DAILY 07/20/16 Folic Acid 1 mg PO DAILY 07/20/16 Carvedilol [Coreg*] 3.125 mg PO BID #60 tab 09/26/16 Furosemide [Lasix] 20 mg PO DAILY #30 tablet 11/08/16 Spironolactone [Aldactone*] 25 mg PO DAILY #30 tab 11/08/16 Levetiracetam [Keppra] 1,500 mg PO BID 01/03/17 Pyridoxine [Vitamin B-6*] 50 mg PO DAILY 02/07/17 Thiamine HCl 50 mg PO DAILY 02/07/17 Tramadol HCl [Ultram] 50 mg PO Q6HP PRN 02/07/17 Pantoprazole Sodium [Protonix] 40 mg PO BID #60 tablet. 02/10/17 Lactulose 20 gm PO BID 09/04/17 Rifaximin [Xifaxan] 550 mg PO BID 09/04/17 - Past Medical/Surgical History Has patient received pneumonia vaccine in the past: Yes Diabetic: No -: Hypertension -: History of alcohol -: Seizure disorder -: History CVA -: Chronic back pain with previous back surgery -: Alcoholic cirrhosis -: GERD -: Esophagitis -: Anemia -: Depression -: RA -: Epilepsy -: Back surgery Psychosocial/ Personal History: The patient is a detention resident. He has been there for almost 2 months. - Family History Father -: Hypertension - Social History Smoking Status: Never smoker Alcohol use: No CD- Drugs: No Caffeine use: No Review of Systems 10-point ROS is otherwise unremarkable Respiratory: Hemoptysis (Patient denies. However reported by multiple [place] nursing staff) Physical Examination - Vital Signs Temperature: 97.6 F Blood Pressure: 142/70 Pulse: 74 Respirations: 16 Pulse Ox (%): 100 - Physical Exam General: Alert, In no apparent distress HEENT: Atraumatic, PERRLA, Mucous membr. moist/pink, EOMI, Sclerae nonicteric Neck: Supple, 2+ carotid pulse no bruit, No LAD, Without JVD or thyroid abnormality Respiratory: Clear to auscultation bilaterally, Normal air movement Cardiovascular: Regular rate/rhythm, Normal S1 S2 Gastrointestinal: Normal bowel sounds, No tenderness Musculoskeletal: No tenderness Integumentary: No rashes Neurological: Normal gait, Normal speech, Normal strength at 5/5 x4 extr, Normal tone, Normal affect Lymphatics: No axilla or inguinal lymphadenopathy - Studies Laboratory Data (last 24 hrs) 12/24/17 10:45: Creatinine 0.96 12/24/17 10:45: WBC 10.9, Hgb 6.8 L*, Hct 22.3 L, Plt Count 235 12/24/17 10:45: Sodium 135, Potassium 3.6, BUN 13, Creatinine 0.93, Glucose 138 H, Total Bilirubin 0.7, AST 26, ALT 19, Alkaline Phosphatase 46, Lipase 31 Assessment and Plan - Problems (Diagnosis) (1) Hematemesis Onset Date: 11/06/16 Current Visit: No Status: Acute Plan: Patient has had multiple scopes showing esophagitis. He should be on bid PPI per Dr. Schulz. However he regularly refuses his medications. The patient is refusing a second transfusion. Will observe him for 1 more day. If his hb stays stable we can send him back to the long-term. Qualifiers: Nausea presence: unspecified Qualified Code(s): K92.0 - Hematemesis (2) Alcoholic cirrhosis Current Visit: Yes Status: Acute Plan: Which is stable. Will continue to monitor his lft's. 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 Qualifiers: Hypertension type: essential hypertension Discharge Plan: Shelter Plan to discharge in: 24 Hours - Advance Directives Does patient have a Living Will: No Does patient have a Durable POA for Healthcare: No - Code Status/Comfort Care Code Status Assessed: No Code Status: Full Code Physician Review: Patient Assessed, Agree with Above Assessment and Plan Critical Care: No Time Spent Managing Pts Care (In Minutes): 45
[2017-12-25] MEDS: ENSURE ENLIVE 237 ML CAN PO SCH (20:06)
[2017-12-26] MEDS: ACETAMINOPHEN 500 MG TAB PO PRN (04:01)
[2017-12-26] MEDS: NA CHLORIDE 0.9% 1,000 ML IV SCH (04:04)
[2017-12-26] MEDS: ENSURE ENLIVE 237 ML CAN PO SCH (09:00)
--- NOTE | 2017-12-26 09:13 | P.DS ---
Admission Date: 12/24/17 Discharge Date: 12/26/17 Primary Care Provider: Ant Disposition: TRANSFER TO [facility] Discharge Condition: GOOD Reason for Admission: Upper GI bleed. 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. He has been having coffee ground emesis for the past week. However refusing to be sent to the ER. He had one yesterday and agreed. Patient has a history of seizures, and alcoholic cirrhosis. He has recieved 1 units of PRBC. He denies any coffee ground emesis today. Refuses his 2nd transfusion by Dr. Schulz. He has multiple EGD in the past. Mostly has esophagitis. The patient is usually a difficulty patient. Refuses to take his medications in the half-way. Refuses procedures and follow up appointments Hospital Course: Patient was transfused one unit in the ER. He refused the second unit, refused EGD. Refused his meds. He does this frequently in the half-way where I take care of him. The patient can go back to [place]. Will check his H/H next week. If low we can arrange for outpatient blood transfusion and follow up with Dr. Schulz in the office. Vital Signs/Physical Exam: Temp Pulse Resp BP Pulse Ox 97.8 F 62 16 139/85 94 12/26/17 08:00 12/26/17 08:00 12/26/17 08:00 12/26/17 08:00 12/26/17 08:00 General: Alert, In no apparent distress HEENT: Atraumatic, PERRLA, EOMI Neck: Supple, JVD not distended Respiratory: Clear to auscultation bilaterally, Normal air movement Cardiovascular: Regular rate/rhythm, Normal S1 S2 Gastrointestinal: Normal bowel sounds, No tenderness Musculoskeletal: No tenderness Integumentary: No rashes Neurological: Normal speech, Normal tone, Normal affect Lymphatics: No axilla or inguinal lymphadenopathy Laboratory Data at Discharge: WBC 7.3 K/uL (4.3-10.9) D 12/25/17 04:23 Hgb 7.4 g/dL (13.6-17.9) L* 12/25/17 06:19 Hct 24.9 % (39.6-49.0) L 12/25/17 06:19 Plt Count 177 K/uL (152-406) D 12/25/17 04:23 Sodium 137 mEq/L (135-145) 12/25/17 04:23 Potassium 3.4 mEq/L (3.6-5.0) L 12/25/17 04:23 BUN 9 mg/dL (6-20) 12/25/17 04:23 Creatinine 0.89 mg/dL (0.61-1.24) 12/25/17 04:23 Glucose 89 mg/dL (65-120) 12/25/17 04:23 Total Bilirubin 0.7 mg/dL (0.3-1.2) 12/24/17 10:45 AST 26 IU/L (10-42) 12/24/17 10:45 ALT 19 IU/L (10-60) 12/24/17 10:45 Alkaline Phosphatase 46 IU/L (42-121) 12/24/17 10:45 Lipase 31 U/L (22-51) 12/24/17 10:45 Home Medications: Amlodipine [Norvasc*] 10 mg PO DAILY 07/20/16 Folic Acid 1 mg PO DAILY 07/20/16 Carvedilol [Coreg*] 3.125 mg PO BID #60 tab 09/26/16 Furosemide [Lasix] 20 mg PO DAILY #30 tablet 11/08/16 Spironolactone [Aldactone*] 25 mg PO DAILY #30 tab 11/08/16 Levetiracetam [Keppra] 1,500 mg PO BID 01/03/17 Pyridoxine [Vitamin B-6*] 50 mg PO DAILY 02/07/17 Thiamine HCl 50 mg PO DAILY 02/07/17 Tramadol HCl [Ultram] 50 mg PO Q6HP PRN 02/07/17 Pantoprazole Sodium [Protonix] 40 mg PO BID #60 tablet. 02/10/17 Lactulose 20 gm PO BID 09/04/17 Rifaximin [Xifaxan] 550 mg PO BID 09/04/17 Pantoprazole [Protonix Tab] 40 mg PO BID* 90 Days #180 tab 12/26/17 New Medications: Pantoprazole [Protonix Tab] 40 mg PO BID* 90 Days #180 tab Diet: [place] Activity: Ad tom Time spent managing pt's care (in minutes): 30
== END 2017-12-26 16:55 ==
LOC: ER 10:13 → ERHOLD 11:55 → INTOOBSV 11:55 → 2ND 13:22
PROVIDERS: ADMIT Internal Medicine; ATTEND Internal Medicine
PROC: 30233N1 Transfusion of Nonautologous Red Blood Cells into Peripheral Vein, Percutaneous Approach (ICD-10-PCS; principal; 2017-12-24)
DX: K92.0 Hematemesis (principal); K70.30 Alcoholic cirrhosis of liver without ascites; G40.909 Epilepsy, unspecified, not intractable, without status epilepticus; I10 Essential (primary) hypertension; Z53.29 Procedure and treatment not carried out because of patient's decision for other reasons; Z86.73 Personal history of transient ischemic attack (TIA), and cerebral infarction without residual deficits
CPT/HCPCS: 36415; 36430; 80048 ×2; 80076; 83690; 85014; 85018; 85025 ×2; 86850; 86900; 86901; 86922; 99285; C9113 ×2; J2405; J2550; J3010; J7030 ×3; P9016